=== PATIENT | male | born 1935 | race Two or more races ===

== ENCOUNTER 2020-05-26 09:17 | Inpatient (IN) | payer MEDICARE, OTHER ==
[~2020-05-26] VITALS: Ht 167.6 cm; Wt 65.8 kg
--- NOTE | 2020-05-26 09:28 | Emergency Room Report ---
History of Present Illness General Chief Complaint: Dyspnea/Respdistress Source: Patient, Medical Record, EMS Present Illness HPI Patient is an 84-year-old male diagnosed on May 20 with COVID-19 pneumonia who was brought in from his extended care facility for hypoxia. Patient is alert and oriented and has no acute complaints. Specifically he denies any fever or chills. He denies any chest pain, shortness of breath or cough. He denies any abdominal pain, nausea or vomiting. Allergies: Coded Allergies: No Known Allergies (Unverified , 05/26/20) COVID-19 Screening Contact w/high risk pt: No Experienced COVID-19 symptoms?: No COVID-19 Testing performed AREA FIELD PERSON: Yes COVID-19 Screening: Positive COVID-19 COVID-19 Testing Source: SNF Patient History Reviewed Nursing Documentation: PMH: Agreed; PSxH: Agreed Review of Systems All Other Systems: negative except mentioned in HPI Physical Exam Vital Signs Date Time Temp Pulse Resp B/P (MAP) Pulse Ox O2 Delivery O2 Flow Rate FiO2 05/26/20 09:21 98.8 95 22 99/62 (74) 96 Nasal Cannula 4.0 Sp02 EP Interpretation: reviewed, normal - normal on NC General Appearance: no apparent distress, alert Head: normocephalic, atraumatic ENT: hearing grossly normal, normal pharynx, no angioedema, normal voice Neck: full range of motion, no meningismus Respiratory: no respiratory distress, no accessory muscle use, rhonchi Cardiovascular #1: regular rate, rhythm Gastrointestinal: non tender, soft, no guarding, no rebound Rectal: deferred Neurologic: plastics plater III-XII nml as tested Psychiatric: no suicidal/homicidal ideation Skin: no rash Lymphatic: no adenopathy Medical Decision Making Diagnostic Impression: Primary Impression: COVID-19 Additional Impressions: Pneumonia UTI (urinary tract infection) Hyponatremia ER Course Patient presents for hypoxia secondary to COVID-19 pneumonia. Patient given nebulizer treatment as well as 10 mg of IV Decadron. Patient is mildly hyponatremic with sodium of 132. Patient given vancomycin as well as cefepime for his pneumonia. Patient's D-dimer is elevated and creatinine is 1.1. Patient started on heparin instead of Lovenox due to the renal insufficiency. Patient will be admitted for further treatment and evaluation. Laboratory Tests Test 05/26/20 09:00 White Blood Count 10.5 K/UL (4.8-10.8) Red Blood Count 3.58 M/UL (4.70-6.10) L Hemoglobin 12.9 G/DL (14.2-18.0) L Hematocrit 36.2 % (42.0-52.0) L Mean Corpuscular Volume 101 FL (80-99) H Mean Corpuscular Hemoglobin 35.9 PG (27.0-31.0) H Mean Corpuscular Hemoglobin Concent 35.6 G/DL (32.0-36.0) Red Cell Distribution Width 13.2 % (11.6-14.8) Platelet Count 327 K/UL (150-450) Mean Platelet Volume 5.5 FL (6.5-10.1) L Neutrophils (%) (Auto) 75.4 % (45.0-75.0) H Lymphocytes (%) (Auto) 12.9 % (20.0-45.0) L Monocytes (%) (Auto) 9.3 % (1.0-10.0) Eosinophils (%) (Auto) 1.9 % (0.0-3.0) Basophils (%) (Auto) 0.5 % (0.0-2.0) Prothrombin Time 10.8 SEC (9.30-11.50) Prothrombin Time INR 1.0 (0.9-1.1) Activated Partial Thromboplast Time 29 SEC (23-33) D-Dimer 1.86 mg/L FEU (0.00-0.49) H Urine Color Yellow Urine Appearance Clear Urine pH 6 (4.5-8.0) Urine Specific [place] 1.010 (1.005-1.035) Urine Protein 1+ (NEGATIVE) H Urine Glucose (UA) Negative (NEGATIVE) Urine Ketones Negative (NEGATIVE) Urine Blood Negative (NEGATIVE) Urine Nitrite Negative (NEGATIVE) Urine Bilirubin Negative (NEGATIVE) Urine Urobilinogen 1 MG/DL (0.0-1.0) H Urine Leukocyte Esterase 1+ (NEGATIVE) H Urine RBC 0 /HPF (0 - 0) Urine WBC 5-10 /HPF (0 - 0) H Urine Squamous Epithelial Cells Occasional /LPF Urine Bacteria Occasional /HPF (NONE) Urine Mucus Occasional /LPF Sodium Level 132 MMOL/L (136-145) L Potassium Level 4.2 MMOL/L (3.5-5.1) Chloride Level 99 MMOL/L (98-107) Carbon Dioxide Level 31 MMOL/L (21-32) Anion Gap 2 mmol/L (5-15) L Blood Urea Nitrogen 15 mg/dL (7-18) Creatinine 1.1 MG/DL (0.55-1.30) Estimated Glomerular Filtration Rate > 60 mL/min (>60) Glucose Level 147 MG/DL (74-106) H Lactic Acid Level 1.20 mmol/L (0.4-2.0) Calcium Level 8.4 MG/DL (8.5-10.1) L Magnesium Level 1.9 MG/DL (1.8-2.4) Ferritin 972 NG/ML (8-388) H Total Bilirubin 0.5 MG/DL (0.2-1.0) Aspartate Amino Transferase (AST) 49 U/L (15-37) H Alanine Aminotransferase (ALT) 81 U/L (12-78) H Alkaline Phosphatase 91 U/L (46-116) Lactate Dehydrogenase 171 U/L (81-234) Troponin I 0.044 ng/mL (0.000-0.056) C-Reactive Protein, Quantitative 5.0 mg/dL (0.00-0.90) H Pro-B-Type Natriuretic Peptide 165 pg/mL (0-125) H Total Protein 7.4 G/DL (6.4-8.2) Albumin 2.3 G/DL (3.4-5.0) L Globulin 5.1 g/dL Albumin/Globulin Ratio 0.5 (1.0-2.7) L EKG Diagnostic Results Troponin ordered: Yes When was troponin ordered?: May 26, 2020 EKG Time: 10:07 EP Interpretation: Karla More MD Rate: normal - 91 bpm Rhythm: NSR - PACs, right axis deviation ST Segments: no acute changes ASA given to the pt in ED: No Rhythm Strip Diag. Results Rhythm Strip Time: 09:45 EP Interpretation: yes - Karla More MD Rate: 95 bpm Rhythm: NSR, no PVC's, no ectopy Chest X-Ray Diagnostic Results Chest X-Ray Diagnostic Results : Chest X-Ray Ordered: Yes # of Views/Limited/Complete: 1 View Indication: Shortness of Breath EP Interpretation: Yes Interpretation: no effusion, no pneumothorax, other - Bilateral lower lobe patchy infiltrates Impression: Other - Pneumonia Electronically Signed by: Karla More MD Last Vital Signs Date Time Temp Pulse Resp B/P (MAP) Pulse Ox O2 Delivery O2 Flow Rate FiO2 05/26/20 09:21 98.8 95 22 99/62 (74) 96 Nasal Cannula 4.0 Disposition: ADMITTED INPATIENT - Telemetry Condition: Critical Physician Consult: Dr. Jenn MD at 1050am Additional Instructions: Please note that this report is being documented using Starfish 360 technology. This can lead to erroneous entry secondary to incorrect interpretation by the dictating instrument. Karla More M.D. May 26, 2020 09:28
[2020-05-26 09:30] VITALS: BP 99/62
[2020-05-26] MEDS ORDERED: TRUSOPT10 ML BOTH EYES (09:37)
[2020-05-26] MEDS ORDERED: ASPIRIN81 MG ORAL (09:37)
[2020-05-26] MEDS ORDERED: ATORVASTATIN CA10 MG ORAL (09:37)
[2020-05-26] MEDS ORDERED: LINZESS145 MCG PO (09:37)
[2020-05-26] MEDS ORDERED: ATORVASTATIN CA20 MG ORAL (09:37)
[2020-05-26] MEDS ORDERED: OMEPRAZOLE40 M1 ORAL (09:37)
[2020-05-26] MEDS ORDERED: MONTELUKAST SOD10 MG ORAL (09:37)
[2020-05-26] MEDS ORDERED: ZOLOFT100 MG ORAL (09:37)
[2020-05-26] MEDS ORDERED: RANEXA500 MG ORAL (09:37)
[2020-05-26] MEDS ORDERED: QUETIAPINE FUMA50 MG ORAL (09:37)
[2020-05-26] MEDS ORDERED: AMLODIPINE BESYL5 MG ORAL (09:37)
[2020-05-26] MEDS ORDERED: FLOMAX0.4 MG ORAL (09:37)
[2020-05-26] MEDS ORDERED: ATIVAN0.5 MG ORAL (09:37)
[2020-05-26] MEDS ORDERED: IPRATROPIU0.2 MG/1 M HHN (09:37)
[2020-05-26 10:15] LABS: APPEARANCE,URINE CLEAR; BILIRUBIN, URINE NEGATIVE (NEGATIVE); GLUCOSE, URINE (UA) NEGATIVE (NEGATIVE); KETONES,URINE NEGATIVE (NEGATIVE); LEUKOCYTE ESTERASE ,URINE 1+ (NEGATIVE); NITRITE,URINE NEGATIVE (NEGATIVE); PH,URINE 6 (4.5-8.0); PROTEIN,URINE 1+ (NEGATIVE); UROBILINOGEN,URINE 1 MG/DL (0.0-1.0)
--- NOTE | 2020-05-26 10:15 | Diagnostic Imaging Report ---
EXAM: XR Chest, 1 View CLINICAL HISTORY: SOB TECHNIQUE: Frontal view of the chest. COMPARISON: No relevant prior studies available. FINDINGS: Lungs: There are patchy bilateral diffuse peripheral ground glass alveolar infiltrates consistent with pneumonia. The infiltrates are typical of Covid 19. Pleural space: Unremarkable. No pneumothorax. Heart: Unremarkable. No cardiomegaly. Mediastinum: Unremarkable. Bones/joints: Unremarkable. IMPRESSION: There are patchy bilateral diffuse peripheral ground glass alveolar infiltrates consistent with pneumonia. The infiltrates are typical of Covid 19.
[2020-05-26 10:16] LABS: COLOR,URINE YELLOW
[2020-05-26 10:22] LABS: BASOPHILS % (AUTO) 0.5 % (0.0-2.0); EOSINOPHILS % (AUTO) 1.9 % (0.0-3.0); HEMATOCRIT 36.2 % (42.0-52.0); HEMOGLOBIN 12.9 G/DL (14.2-18.0); LYMPHOCYTES % (AUTO) 12.9 % (20.0-45.0); MEAN CORPUSCULAR VOLUME 101 FL (80-99); MONOCYTES % (AUTO) 9.3 % (1.0-10.0); NEUTROPHILS % (AUTO) 75.4 % (45.0-75.0); PLATELET COUNT 327 K/UL (150-450); RED BLOOD COUNT 3.58 M/UL (4.70-6.10); RED CELL DISTRIBUTION WIDTH 13.2 % (11.6-14.8); WHITE BLOOD COUNT 10.5 K/UL (4.8-10.8)
[2020-05-26 10:25] LABS: ANION GAP 2 mmol/L (5-15); BLOOD UREA NITROGEN 15 mg/dL (7-18); CALCIUM 8.4 MG/DL (8.5-10.1); CARBON DIOXIDE 31 MMOL/L (21-32); CHLORIDE 99 MMOL/L (98-107); CREATININE 1.1 MG/DL (0.55-1.30); POTASSIUM 4.2 MMOL/L (3.5-5.1); SODIUM 132 MMOL/L (136-145)
[2020-05-26 10:36] LABS: ALANINE AMINOTRANSFERASE 81 U/L (12-78); ALBUMIN 2.3 G/DL (3.4-5.0); ALBUMIN/GLOBULIN RATIO 0.5 (1.0-2.7); ALKALINE PHOSPHATASE 91 U/L (46-116); ASPARTATE AMINO TRANSFERASE 49 U/L (15-37); BILIRUBIN,TOTAL 0.5 MG/DL (0.2-1.0); FERRITIN 972 NG/ML (8-388); LACTATE DEHYDROGENASE 171 U/L (81-234)
[2020-05-26] MEDS ORDERED: dexAMETHasone 10mg/ml Inj IV ONE (11:00)
[2020-05-26] MEDS ORDERED: Heparin 25,000u/D5W 500ml 500 ML IV SCH (11:00)
[2020-05-26] MEDS ORDERED: Albuterol/Ipratropium 3ml neb HHN ONE (11:00)
[2020-05-26] MEDS ORDERED: Heparin 5000 units/ml inj IV ONE (11:00)
[2020-05-26] MEDS ORDERED: Cefepime HCl 2 GM in D5W 55 ML IVPB ONE (11:00)
[2020-05-26] MEDS ORDERED: Vancomycin 1 GM in NS 275 ML IVPB ONE (11:00)
[2020-05-26 13:04] VITALS: BP 116/76
[2020-05-26] MEDS ORDERED: Albuterol/Ipratropium 3ml neb ONE (15:13)
[2020-05-26] MEDS ORDERED: Miralax 17gm pkt ORAL PRN (16:00)
[2020-05-26] MEDS ORDERED: Albuterol/Ipratropium 3ml neb HHN PRN (16:00)
[2020-05-26 16:14] VITALS: BP 116/90
[2020-05-26] MEDS: Azithromycin 250 MG in D5W 275 ML IV SCH (17:50)
[2020-05-26 18:04] VITALS: BP 130/72
[2020-05-26 19:30] VITALS: BP 119/79
[2020-05-26] MEDS: cefTRIAXone 1 GM in D5W 55 ML IVPB SCH (21:00)
[2020-05-26] MEDS: Heparin 5000 units/ml inj SUBQ SCH (21:01)
--- NOTE | 2020-05-26 21:20 | History & Physical ---
History and Physical History & Physicial job #[id number] Josiah Rosales MD May 26, 2020 21:20
--- NOTE | 2020-05-26 21:22 | General Progress Note ---
Advance Care Planning Advance Care Planning Advance Care Planning Internal Medicine Hospitalist Advanced Care Planning Note Date of Discussion: A [id number] discussion with the Patient regarding the patient's advanced care planning took place during this hospitalization on the above date. The discussion included the explanation and discussion of advance directives and associated forms/documents, as well as the patient's current code status. We also discussed at length the patient's medical conditions (both acute and chronic), general prognosis, treatment options, and goals of care. The following summarizes the discussion: Advance Care Planning/Goals of Care: - Will attempt to fill out an AD and/or POLST with the patient prior to discharge, if not already completed - Continue current evaluation and management of any acute and chronic medical issues - Will continue to support the patient/family - Will continue to discuss both short- and long-term goals of care DPOA-HC/Surrogate Decision Maker: None currently appointed Code Status: Full Code Advanced Care Planning Forms/Documents Completed: Deferred until later encounter A total of less than 30 minutes was spent on this discussion, including counseling, answering questions, and completing, if any, pertinent advanced care planning forms/documents. Time of note may not reflect time of encounter. Josiah Rosales MD May 26, 2020 21:21
[2020-05-26 23:00] VITALS: BP 128/73
--- NOTE | 2020-05-26 23:14 | History and Physical Report ---
DATE OF ADMISSION: 05/26/2020 CHIEF COMPLAINT: Shortness of breath. HISTORY OF PRESENT ILLNESS: This is an 84-year-old [place] gentleman with past medical history significant for depression, BPH, coronary artery disease, history of open heart surgery, dyslipidemia who presented to the hospital from nursing facility after was noted to have recent COVID-19 pneumonia on 05/20/2020. Patient was brought in from the [facility] after was complaining about worsening shortness of breath. He denies any fever, chills. Denies any chest pain or loss of consciousness. Denies any abdominal pain, nausea, vomiting, or diarrhea. Shortly after initial evaluation in the emergency department, patient was admitted to the hospital with COVID-19 pneumonia with acute hypoxemic respiratory failure. PAST MEDICAL HISTORY/PAST SURGICAL HISTORY: As above. History of recent COVID-19 positive on 05/20/2020, open heart surgery, history of coronary artery disease, dyslipidemia, depression, and BPH. MEDICATIONS AT HOME: Please refer to medication reconciliation. ALLERGIES: No known drug allergies. SOCIAL HISTORY: No smoking, alcohol, or drugs at this time. FAMILY HISTORY: Noncontributory. REVIEW OF SYSTEMS: Mostly as above. Denies any dysuria, frequency, hematuria, or hematochezia. Denies any bright red blood per rectum. Denies any loss of consciousness. Complained about shortness of breath. Denies any fever, chills, fall, or head trauma. PHYSICAL EXAMINATION: VITAL SIGNS: On admission, temperature 98.8, pulse of 95, respiratory rate 22, blood pressure 99/62. GENERAL: Patient awake, responsive, in no acute distress. HEAD AND NECK: Pupils are equal and reactive to light. Extraocular movements are intact. Neck was supple. No JVD. LUNGS: Good air entry. Positive wheezes. No rales. Decreased air in bases. HEART: S1, S2. Distant heart sounds. No murmur or gallops. ABDOMEN: Soft, nondistended, nontender. Positive bowel sounds. EXTREMITIES: No cyanosis, clubbing, or edema. NEUROLOGIC: Cranial nerves II through XII grossly intact. Patient moving all the extremities spontaneously. RECTAL: Refused and deferred. GENITOURINARY: Refused and deferred. PSYCHIATRIC: Mood and affect is intact. LABORATORY DATA: On admission WBC of 10.5, hemoglobin 12, hematocrit 36, platelets 227. ABG, pH 7.37, pCO2 of 52, pO2 of 103, saturating 97%. Sodium is 132, potassium 4.2, chloride 99, bicarb 31, BUN 15, creatinine 1.1, glucose is 147. Lactic acid is 1.2, calcium is 8.4, magnesium is 1.9. Ferritin 972. Total bilirubin of 0.5, AST of 49, ALT of 81, alkaline phosphatase 91. Lactate dehydrogenase is 171. First troponin 0.044. CRP is 5.0. ProBNP of 165. Albumin is 2.3. PT of 10, INR 1.0, PTT of 29. D-dimer is 1.86. Urinalysis, +1 protein, +1 leukocytes. Influenza A and B is negative. Chest x-ray, patchy bilateral diffuse pulmonary ground glass alveolar infiltrate consistent with pneumonia. ASSESSMENT: 1. COVID-19 pneumonia. 2. Acute hypoxemic respiratory failure. 3. Hyponatremia. 4. Coronary artery disease. 5. Dyslipidemia. 6. Depression. 7. BPH. PLAN: Admit the patient to monitored unit. We will follow up laboratory. Start patient on Decadron and consider starting patient on remdesivir if the patient's status is not improving. Monitor laboratory, cultures. Duplex of lower extremity. Code status is Full Code. We will resume snf medication. Discussed case with Dr. Yeung, Pulmonary Critical Care and Dr. Garcia from Infectious Disease. Josiah Rosales M.D. DR: ZAYRA JOB#: [id number] CC:
[2020-05-27] VITALS (8 sets, daily range): BP systolic 114–156; BP diastolic 62–81
--- NOTE | 2020-05-27 01:02 | Diagnostic Imaging Report ---
EXAM: US Duplex Bilateral Upper Extremities Veins CLINICAL HISTORY: COUGH TECHNIQUE: Real-time duplex ultrasound scan of the bilateral upper extremity veins integrating B-mode two-dimensional vascular structure, Doppler spectral analysis, color flow Doppler imaging and compression. COMPARISON: No previous studies for FINDINGS: Right deep veins: Otherwise, no deep venous thrombosis bilaterally in the upper extremities including the internal jugular veins, subclavian veins, and axillary veins, the brachial veins. Right superficial veins: No thrombosis within the basilic veins bilaterally and the right cephalic vein. Left deep veins: See above. Left superficial veins: The left cephalic vein is not visualized. No thrombus in the visualized left basilic and cephalic veins. Soft tissues: No acute findings. IMPRESSION: 1. No deep venous thrombosis bilaterally upper extremities. 2. Nonvisualization of the left cephalic vein.
[2020-05-27 04:37] LABS: HEMATOCRIT 35.3 % (42.0-52.0); HEMOGLOBIN 12.7 G/DL (14.2-18.0); MEAN CORPUSCULAR VOLUME 101 FL (80-99); PLATELET COUNT 311 K/UL (150-450); RED BLOOD COUNT 3.51 M/UL (4.70-6.10); RED CELL DISTRIBUTION WIDTH 13.1 % (11.6-14.8); WHITE BLOOD COUNT 16.6 K/UL (4.8-10.8)
[2020-05-27 04:58] LABS: ALANINE AMINOTRANSFERASE 84 U/L (12-78); ALBUMIN 2.3 G/DL (3.4-5.0); ALBUMIN/GLOBULIN RATIO 0.5 (1.0-2.7); ALKALINE PHOSPHATASE 87 U/L (46-116); ANION GAP 4 mmol/L (5-15); ASPARTATE AMINO TRANSFERASE 46 U/L (15-37); BILIRUBIN,TOTAL 0.4 MG/DL (0.2-1.0); BLOOD UREA NITROGEN 14 mg/dL (7-18); CALCIUM 8.5 MG/DL (8.5-10.1); CARBON DIOXIDE 30 MMOL/L (21-32); CHLORIDE 100 MMOL/L (98-107); CREATININE 0.9 MG/DL (0.55-1.30); PHOSPHORUS 2.9 MG/DL (2.5-4.9); POTASSIUM 4.4 MMOL/L (3.5-5.1); SODIUM 134 MMOL/L (136-145)
[2020-05-27] MEDS: Tamsulosin 0.4mg cap ORAL SCH (09:01)
[2020-05-27] MEDS: Aspirin Baby 81mg ORAL SCH (09:01)
[2020-05-27] MEDS: Sertraline 50mg tab ORAL SCH (09:01)
[2020-05-27] MEDS: Heparin 5000 units/ml inj SUBQ SCH ×2 (09:03→21:19)
--- NOTE | 2020-05-27 15:08 | Internal Med Progress Note ---
Subjective Physician Name Josiah Rosales Attending Physician Current Medications Medications (Trade) Dose Ordered Sig/Lewis Route PRN Reason Start Time Stop Time Status Last Admin Dose Admin Acetaminophen (Tylenol) 650 mg Q4H PRN ORAL FEVER 05/26/20 15:53 06/25/20 15:52 Albuterol/ Ipratropium (Combivent Respimat) 1 puff Q4H PRN INH Shortness of Breath 05/26/20 16:00 06/25/20 15:59 UNV Amlodipine Besylate (Norvasc) 5 mg DAILY ORAL 05/27/20 09:00 06/26/20 08:59 05/27/20 09:01 Aspirin (ASA) 81 mg DAILY ORAL 05/27/20 09:00 07/11/20 08:59 05/27/20 09:01 Azithromycin 250 mg/Dextrose 275 ml @ 275 mls/hr Q24HRS IV 05/26/20 18:00 05/31/20 17:59 05/26/20 17:50 Ceftriaxone Sodium 1 gm/ Dextrose 55 ml @ 110 mls/hr Q24H IVPB 05/26/20 21:00 06/02/20 20:59 05/26/20 21:00 Dexamethasone (Decadron) 6 mg DAILY ORAL 05/27/20 09:00 06/26/20 08:59 05/27/20 09:01 Dextrose (Dextrose 50%) 25 ml Q30M PRN IV Hypoglycemia 05/26/20 15:52 08/24/20 15:51 Dextrose (Dextrose 50%) 50 ml Q30M PRN IV Hypoglycemia 05/26/20 15:52 08/24/20 15:51 Heparin Sodium (Porcine) (Heparin 5000 units/ml) 5,000 units EVERY 12 HOURS SUBQ 05/26/20 21:00 07/10/20 20:59 05/27/20 09:03 Ondansetron HCl (Zofran) 4 mg Q6H PRN IVP Nausea & Vomiting 05/26/20 15:52 06/25/20 15:51 Polyethylene Glycol (Miralax) 17 gm DAILY PRN ORAL CONSTIPATION 05/26/20 16:00 06/25/20 15:59 Promethazine HCl/ Codeine (Phenergan with Codeine) 5 ml Q6H PRN ORAL cough 05/26/20 15:53 06/25/20 15:52 Quetiapine Fumarate (SEROqueL) 150 mg BEDTIME ORAL 05/26/20 21:00 07/10/20 20:59 05/26/20 21:00 Sertraline HCl (Zoloft) 150 mg DAILY ORAL 05/27/20 09:00 06/26/20 08:59 05/27/20 09:01 Tamsulosin HCl (Flomax) 0.4 mg DAILY ORAL 05/27/20 09:00 06/26/20 08:59 05/27/20 09:01 Allergies: Coded Allergies: No Known Allergies (Unverified , 05/26/20) Subjective Awake, alert, responsive, denies any chest pain, decreased shortness of breath, troponin 0.042 Objective Last Vital Signs Date Time Temp Pulse Resp B/P (MAP) Pulse Ox O2 Delivery O2 Flow Rate FiO2 05/27/20 10:20 98.7 80 14 125/70 100 Nasal Cannula 2.0 05/27/20 02:00 36 Laboratory Tests Test 05/27/20 04:15 White Blood Count 16.6 K/UL (4.8-10.8) #H Red Blood Count 3.51 M/UL (4.70-6.10) L Hemoglobin 12.7 G/DL (14.2-18.0) L Hematocrit 35.3 % (42.0-52.0) L Mean Corpuscular Volume 101 FL (80-99) H Mean Corpuscular Hemoglobin 36.1 PG (27.0-31.0) H Mean Corpuscular Hemoglobin Concent 35.9 G/DL (32.0-36.0) Red Cell Distribution Width 13.1 % (11.6-14.8) Platelet Count 311 K/UL (150-450) Mean Platelet Volume 5.3 FL (6.5-10.1) L Neutrophils (%) (Auto) % (45.0-75.0) Lymphocytes (%) (Auto) % (20.0-45.0) Monocytes (%) (Auto) % (1.0-10.0) Eosinophils (%) (Auto) % (0.0-3.0) Basophils (%) (Auto) % (0.0-2.0) Differential Total Cells Counted 100 Neutrophils % (Manual) 89 % (45-75) H Lymphocytes % (Manual) 6 % (20-45) L Monocytes % (Manual) 5 % (1-10) Eosinophils % (Manual) 0 % (0-3) Basophils % (Manual) 0 % (0-2) Band Neutrophils 0 % (0-8) Platelet Estimate Adequate Platelet Morphology Normal Macrocytosis 1+ Sodium Level 134 MMOL/L (136-145) L Potassium Level 4.4 MMOL/L (3.5-5.1) Chloride Level 100 MMOL/L (98-107) Carbon Dioxide Level 30 MMOL/L (21-32) Anion Gap 4 mmol/L (5-15) L Blood Urea Nitrogen 14 mg/dL (7-18) Creatinine 0.9 MG/DL (0.55-1.30) Estimat Glomerular Filtration Rate > 60 mL/min (>60) Glucose Level 105 MG/DL (74-106) Calcium Level 8.5 MG/DL (8.5-10.1) Phosphorus Level 2.9 MG/DL (2.5-4.9) Magnesium Level 2.8 MG/DL (1.8-2.4) H Total Bilirubin 0.4 MG/DL (0.2-1.0) Aspartate Amino Transf (AST/SGOT) 46 U/L (15-37) H Alanine Aminotransferase (ALT/SGPT) 84 U/L (12-78) H Alkaline Phosphatase 87 U/L (46-116) Troponin I 0.042 ng/mL (0.000-0.056) Total Protein 7.3 G/DL (6.4-8.2) Albumin 2.3 G/DL (3.4-5.0) L Globulin 5.0 g/dL Albumin/Globulin Ratio 0.5 (1.0-2.7) L Microbiology Date/Time Source Procedure Growth Status 05/26/20 10:00 Rectum Received 05/26/20 10:00 Nasal Nares - Final Complete 05/26/20 10:00 Nasal Nares - Final Complete Intake and Output 05/26/20 05/27/20 19:00 07:00 Intake Total 330 ml Balance 330 ml Intake IV Total 330 ml Objective GENERAL: Patient awake, responsive, in no acute distress. HEAD AND NECK: Pupils are equal and reactive to light. Extraocular movements are intact. Neck was supple. No JVD. LUNGS: Good air entry. Positive wheezes. No rales. Decreased air in bases. HEART: S1, S2. Distant heart sounds. No murmur or gallops. ABDOMEN: Soft, nondistended, nontender. Positive bowel sounds. EXTREMITIES: No cyanosis, clubbing, or edema. NEUROLOGIC: Cranial nerves II through XII grossly intact. Patient moving all the extremities spontaneously. RECTAL: Refused and deferred. GENITOURINARY: Refused and deferred. PSYCHIATRIC: Mood and affect is intact. Assessment/Plan Assessment/Plan ASSESSMENT: 1. COVID-19 pneumonia. 2. Acute hypoxemic respiratory failure. 3. Hyponatremia. 4. 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 5. Dyslipidemia. 6. Depression. 7. BPH. PLAN: In monitored unit. Monitor laboratory and cultures. on Decadron Consider Remdesivir if the patient's status is not improving. Duplex of lower extremity negative for acute DVT. Code status is Full Code. DVT prophylaxis: Heparin subcu. Dr. Yeung, Pulmonary Critical Care and Dr. Garcia from Infectious Disease. Josiah Rosales MD May 27, 2020 15:07
[2020-05-27] MEDS: Azithromycin 250 MG in D5W 275 ML IV SCH (18:04)
[2020-05-27] MEDS: cefTRIAXone 1 GM in D5W 55 ML IVPB SCH (21:18)
[2020-05-27] MEDS ORDERED: QUEtiapine 200mg tab ORAL SCH (21:30)
[2020-05-28] VITALS: BP 125/72
[2020-05-28 04:00] VITALS: BP 133/78
[2020-05-28 07:48] LABS: BASOPHILS % (AUTO) 0.5 % (0.0-2.0); EOSINOPHILS % (AUTO) 0.8 % (0.0-3.0); HEMOGLOBIN 12.1 G/DL (14.2-18.0); LYMPHOCYTES % (AUTO) 10.4 % (20.0-45.0); MEAN CORPUSCULAR VOLUME 104 FL (80-99); MONOCYTES % (AUTO) 6.1 % (1.0-10.0); NEUTROPHILS % (AUTO) 82.2 % (45.0-75.0); PLATELET COUNT 301 K/UL (150-450); RED BLOOD COUNT 3.28 M/UL (4.70-6.10); RED CELL DISTRIBUTION WIDTH 12.2 % (11.6-14.8); WHITE BLOOD COUNT 14.5 K/UL (4.8-10.8)
[2020-05-28 08:00] VITALS: BP 138/73
[2020-05-28 08:01] LABS: ALANINE AMINOTRANSFERASE 113 U/L (12-78); ALBUMIN 2.3 G/DL (3.4-5.0); ALBUMIN/GLOBULIN RATIO 0.5 (1.0-2.7); ALKALINE PHOSPHATASE 89 U/L (46-116); AMYLASE 149 U/L (25-115); ANION GAP 3 mmol/L (5-15); ASPARTATE AMINO TRANSFERASE 69 U/L (15-37); BILIRUBIN,TOTAL 0.3 MG/DL (0.2-1.0); BLOOD UREA NITROGEN 18 mg/dL (7-18); CALCIUM 8.7 MG/DL (8.5-10.1); CARBON DIOXIDE 31 MMOL/L (21-32); CHLORIDE 99 MMOL/L (98-107); CREATININE 0.9 MG/DL (0.55-1.30); POTASSIUM 4.2 MMOL/L (3.5-5.1); SODIUM 133 MMOL/L (136-145)
[2020-05-28] MEDS: Sertraline 50mg tab ORAL SCH (09:13)
[2020-05-28] MEDS: Tamsulosin 0.4mg cap ORAL SCH (09:13)
[2020-05-28] MEDS: Aspirin Baby 81mg ORAL SCH (09:13)
[2020-05-28] MEDS: Heparin 5000 units/ml inj SUBQ SCH ×2 (09:14→20:15)
--- NOTE | 2020-05-28 11:44 | Consultation ---
History of Present Illness General Date patient seen: May 27, 2020 Chief Complaint: Dyspnea/Respdistress Present Illness HPI 84-year-old male with hx of HTN, BPH, COPD, [facility] resident diagnosed on May 20 with COVID-19 pneumonia who was brought for hypoxia. Patient is julian rt and oriented and has no acute complaints. Specifically he denies any fever or chills. He denies any chest pain, shortness of breath or cough. He denies any abdominal pain, nausea or vomiting. Allergies: Coded Allergies: No Known Allergies (Unverified , 05/26/20) Medication History Scheduled Amlodipine Besylate* (Amlodipine Besylate*), 5 MG ORAL DAILY, (Reported) Aspirin* (Aspirin*), 81 MG ORAL DAILY, (Reported) Atorvastatin Calcium* (Atorvastatin Calcium*), 20 MG ORAL BEDTIME, (Reported) Atorvastatin Calcium* (Lipitor*), 10 MG ORAL BEDTIME, (Reported) Atorvastatin Calcium* (Lipitor*), 10 MG ORAL BEDTIME, (Reported) Dorzolamide Hcl* (Trusopt*), 1 DROP BOTH EYES TID, (Reported) Lorazepam* (Ativan*), 0.5 MG ORAL THREE TIMES A DAY, (Reported) Montelukast Sodium* (Montelukast Sodium*), 10 MG ORAL DAILY, (Reported) Omeprazole (Omeprazole), 40 MG ORAL DAILY, (Reported) Quetiapine Fumarate* (Quetiapine Fumarate*), 150 MG ORAL BEDTIME, (Reported) Ranolazine* (Ranexa*), 500 MG ORAL EVERY 12 HOURS, (Reported) Sertraline Hcl* (Zoloft*), 150 MG ORAL DAILY, (Reported) Tamsulosin HCl (Flomax), 0.4 MG ORAL DAILY, (Reported) Scheduled PRN Ipratropium Zachary 0.5MG/2.5ML (Ipratropium Zachary 0.5MG/2.5ML), 0.5 MG HHN Q6H PRN for Shortness of Breath, (Reported) Miscellaneous Medications Linaclotide (Linzess), 145 MCG PO, (Reported) Patient History Healthcare decision maker Resuscitation status Advanced Directive on File Past Medical/Surgical History Past Medical/Surgical History: (1) CAD (coronary artery disease) (2) HTN (hypertension) (3) COPD (chronic obstructive pulmonary disease) (4) BPH (benign prostatic hyperplasia) Review of Systems All Other Systems: negative except mentioned in HPI Physical Exam General Appearance: WD/WN Lines, tubes and drains: peripheral HEENT: normocephalic, atraumatic Neck: non-tender, normal alignment Respiratory/Chest: chest wall non-tender, lungs clear Cardiovascular/Chest: normal peripheral pulses, normal rate Abdomen: normal bowel sounds, non tender Genitourinary/Rectal: normal genital exam Skin Exam: normal pigmentation Neurologic: [place] II-XII grossly normal Last 24 Hour Vital Signs Date Time Temp Pulse Resp B/P (MAP) Pulse Ox O2 Delivery O2 Flow Rate FiO2 05/28/20 09:13 95 138/73 05/28/20 09:00 Nasal Cannula 2.0 05/28/20 08:00 97.5 85 20 138/73 (94) 96 05/28/20 04:00 97.7 79 17 133/78 (96) 99 05/28/20 00:00 97.7 91 18 125/72 (89) 98 05/27/20 21:00 Nasal Cannula 2.0 05/27/20 20:00 98.1 86 16 128/81 (97) 98 05/27/20 17:08 Nasal Cannula 2.0 05/27/20 16:38 97.3 77 18 156/77 (103) 96 05/27/20 16:03 98.7 89 17 132/79 100 Nasal Cannula 2.0 36 05/27/20 13:05 98.7 77 16 131/74 98 Nasal Cannula 2.0 36 Intake and Output 05/27/20 05/28/20 19:00 07:00 Intake Total 310 ml Balance 310 ml Intake Oral 200 ml IV Total 110 ml # Voids 2 Laboratory Tests Test 05/28/20 05:40 White Blood Count 14.5 K/UL (4.8-10.8) H Red Blood Count 3.28 M/UL (4.70-6.10) L Hemoglobin 12.1 G/DL (14.2-18.0) L Hematocrit 34.0 % (42.0-52.0) L Mean Corpuscular Volume 104 FL (80-99) H Mean Corpuscular Hemoglobin 36.8 PG (27.0-31.0) H Mean Corpuscular Hemoglobin Concent 35.4 G/DL (32.0-36.0) Red Cell Distribution Width 12.2 % (11.6-14.8) Platelet Count 301 K/UL (150-450) Mean Platelet Volume 4.7 FL (6.5-10.1) L Neutrophils (%) (Auto) 82.2 % (45.0-75.0) H Lymphocytes (%) (Auto) 10.4 % (20.0-45.0) L Monocytes (%) (Auto) 6.1 % (1.0-10.0) Eosinophils (%) (Auto) 0.8 % (0.0-3.0) Basophils (%) (Auto) 0.5 % (0.0-2.0) Erythrocyte Sedimentation Rate 95 MM/HR (0-20) H Sodium Level 133 MMOL/L (136-145) L Potassium Level 4.2 MMOL/L (3.5-5.1) Chloride Level 99 MMOL/L (98-107) Carbon Dioxide Level 31 MMOL/L (21-32) Anion Gap 3 mmol/L (5-15) L Blood Urea Nitrogen 18 mg/dL (7-18) Creatinine 0.9 MG/DL (0.55-1.30) Estimat Glomerular Filtration Rate > 60 mL/min (>60) Glucose Level 87 MG/DL (74-106) Lactic Acid Level 1.00 mmol/L (0.4-2.0) Calcium Level 8.7 MG/DL (8.5-10.1) Total Bilirubin 0.3 MG/DL (0.2-1.0) Aspartate Amino Transf (AST/SGOT) 69 U/L (15-37) H Alanine Aminotransferase (ALT/SGPT) 113 U/L (12-78) H Alkaline Phosphatase 89 U/L (46-116) C-Reactive Protein, Quantitative 2.5 mg/dL (0.00-0.90) H Total Protein 7.1 G/DL (6.4-8.2) Albumin 2.3 G/DL (3.4-5.0) L Globulin 4.8 g/dL Albumin/Globulin Ratio 0.5 (1.0-2.7) L Amylase Level 149 U/L (25-115) H Lipase 349 U/L (73-393) Height (Feet): 5 Height (Inches): 6.00 Weight (Pounds): 145 Medications Current Medications Medications (Trade) Dose Ordered Sig/Lewis Route PRN Reason Start Time Stop Time Status Last Admin Dose Admin Acetaminophen (Tylenol) 650 mg Q4H PRN ORAL FEVER 05/26/20 15:53 06/25/20 15:52 Albuterol/ Ipratropium (Combivent Respimat) 1 puff Q4H PRN INH Shortness of Breath 05/27/20 21:30 06/26/20 21:29 05/27/20 21:18 Amlodipine Besylate (Norvasc) 5 mg DAILY ORAL 05/27/20 09:00 06/26/20 08:59 05/28/20 09:13 Aspirin (ASA) 81 mg DAILY ORAL 05/27/20 09:00 07/11/20 08:59 05/28/20 09:13 Azithromycin 250 mg/Dextrose 275 ml @ 275 mls/hr Q24HRS IV 05/26/20 18:00 05/31/20 17:59 05/27/20 18:04 Ceftriaxone Sodium 1 gm/ Dextrose 55 ml @ 110 mls/hr Q24H IVPB 05/26/20 21:00 06/02/20 20:59 05/27/20 21:18 Dexamethasone (Decadron) 6 mg DAILY ORAL 05/27/20 09:00 06/26/20 08:59 05/28/20 10:25 Dextrose (Dextrose 50%) 25 ml Q30M PRN IV Hypoglycemia 05/26/20 15:52 08/24/20 15:51 Dextrose (Dextrose 50%) 50 ml Q30M PRN IV Hypoglycemia 05/26/20 15:52 08/24/20 15:51 Heparin Sodium (Porcine) (Heparin 5000 units/ml) 5,000 units EVERY 12 HOURS SUBQ 05/26/20 21:00 07/10/20 20:59 05/28/20 09:14 Ondansetron HCl (Zofran) 4 mg Q6H PRN IVP Nausea & Vomiting 05/26/20 15:52 06/25/20 15:51 Polyethylene Glycol (Miralax) 17 gm DAILY PRN ORAL CONSTIPATION 05/26/20 16:00 06/25/20 15:59 Promethazine HCl/ Codeine (Phenergan with Codeine) 5 ml Q6H PRN ORAL cough 05/26/20 15:53 06/25/20 15:52 Quetiapine Fumarate (SEROqueL) 150 mg BEDTIME ORAL 05/28/20 21:00 07/11/20 21:29 Sertraline HCl (Zoloft) 150 mg DAILY ORAL 05/27/20 09:00 06/26/20 08:59 05/28/20 09:13 Tamsulosin HCl (Flomax) 0.4 mg DAILY ORAL 05/27/20 09:00 06/26/20 08:59 05/28/20 09:13 Temazepam (Restoril) 15 mg HSPRN PRN ORAL Insomnia 05/28/20 01:00 06/04/20 00:59 05/28/20 01:05 Assessment/Plan Problem List: (1) COVID-19 ICD Codes: U07.1 - COVID-19 SNOMED: 290641451 (2) COPD (chronic obstructive pulmonary disease) ICD Codes: J44.9 - Chronic obstructive pulmonary disease, unspecified SNOMED: 69126719 (3) CAD (coronary artery disease) ICD Codes: I25.10 - Atherosclerotic heart disease of [place] coronary artery without angina pectoris SNOMED: 83465079 (4) HTN (hypertension) ICD Codes: I10 - Essential (primary) hypertension SNOMED: 87308916 (5) BPH (benign prostatic hyperplasia) ICD Codes: N40.0 - Benign prostatic hyperplasia without lower urinary tract symptoms SNOMED: 902400657 Assessment/Plan: Respiratory Isolation titrate fio2 to sat of 92% ABx and antiviral as per ID monitor BP resume [facility] meds symptomatic treatment antitussives dvt prophylaxis Maria Eugenia Yeung MD May 28, 2020 11:44
--- NOTE | 2020-05-28 11:46 | Pulmonology Progress Note ---
Subjective ROS Limited/Unobtainable: Yes Allergies: Coded Allergies: No Known Allergies (Unverified , 05/26/20) Objective Last 24 Hour Vital Signs Date Time Temp Pulse Resp B/P (MAP) Pulse Ox O2 Delivery O2 Flow Rate FiO2 05/28/20 09:13 95 138/73 05/28/20 09:00 Nasal Cannula 2.0 05/28/20 08:00 97.5 85 20 138/73 (94) 96 05/28/20 04:00 97.7 79 17 133/78 (96) 99 05/28/20 00:00 97.7 91 18 125/72 (89) 98 05/27/20 21:00 Nasal Cannula 2.0 05/27/20 20:00 98.1 86 16 128/81 (97) 98 05/27/20 17:08 Nasal Cannula 2.0 05/27/20 16:38 97.3 77 18 156/77 (103) 96 05/27/20 16:03 98.7 89 17 132/79 100 Nasal Cannula 2.0 36 05/27/20 13:05 98.7 77 16 131/74 98 Nasal Cannula 2.0 36 Intake and Output 05/27/20 05/28/20 19:00 07:00 Intake Total 310 ml Balance 310 ml Intake Oral 200 ml IV Total 110 ml # Voids 2 General Appearance: WD/WN HEENT: normocephalic, atraumatic Respiratory: chest wall non-tender, lungs clear Cardiovascular: normal peripheral pulses, regular rhythm Abdomen: normal bowel sounds, soft, non tender Genitourinary: normal external genitalia Extremities: no clubbing Skin: no rash Neurologic: sole rounder II-XII grossly normal Microbiology Date/Time Source Procedure Growth Status 05/26/20 10:00 Rectum VRE Culture - Final Enterococcus Faecium - Vre Complete 05/26/20 10:00 Nasal Nares - Final Complete 05/26/20 10:00 Nasal Nares - Final Complete Laboratory Tests 05/28/20 05:40: White Blood Count 14.5H, Red Blood Count 3.28L, Hemoglobin 12.1L, Hematocrit 34.0L, Mean Corpuscular Volume 104H, Mean Corpuscular Hemoglobin 36.8H, Mean Corpuscular Hemoglobin Concent 35.4, Red Cell Distribution Width 12.2, Platelet Count 301, Mean Platelet Volume 4.7L, Neutrophils (%) (Auto) 82.2H, Lymphocytes (%) (Auto) 10.4L, Monocytes (%) (Auto) 6.1, Eosinophils (%) (Auto) 0.8, Basophils (%) (Auto) 0.5, Erythrocyte Sedimentation Rate 95H, Sodium Level 133L, Potassium Level 4.2, Chloride Level 99, Carbon Dioxide Level 31, Anion Gap 3L, Blood Urea Nitrogen 18, Creatinine 0.9, Estimat Glomerular Filtration Rate > 60, Glucose Level 87, Lactic Acid Level 1.00, Calcium Level 8.7, Total Bilirubin 0.3, Aspartate Amino Transf (AST/SGOT) 69H, Alanine Aminotransferase (ALT/SGPT) 113H, Alkaline Phosphatase 89, C-Reactive Protein, Quantitative 2.5H, Total Protein 7.1, Albumin 2.3L, Globulin 4.8, Albumin/Globulin Ratio 0.5L, Amylase Level 149H, Lipase 349 Current Medications Medications (Trade) Dose Ordered Sig/Lewis Route PRN Reason Start Time Stop Time Status Last Admin Dose Admin Acetaminophen (Tylenol) 650 mg Q4H PRN ORAL FEVER 05/26/20 15:53 06/25/20 15:52 Albuterol/ Ipratropium (Combivent Respimat) 1 puff Q4H PRN INH Shortness of Breath 05/27/20 21:30 06/26/20 21:29 05/27/20 21:18 Amlodipine Besylate (Norvasc) 5 mg DAILY ORAL 05/27/20 09:00 06/26/20 08:59 05/28/20 09:13 Aspirin (ASA) 81 mg DAILY ORAL 05/27/20 09:00 07/11/20 08:59 05/28/20 09:13 Azithromycin 250 mg/Dextrose 275 ml @ 275 mls/hr Q24HRS IV 05/26/20 18:00 05/31/20 17:59 05/27/20 18:04 Ceftriaxone Sodium 1 gm/ Dextrose 55 ml @ 110 mls/hr Q24H IVPB 05/26/20 21:00 06/02/20 20:59 05/27/20 21:18 Dexamethasone (Decadron) 6 mg DAILY ORAL 05/27/20 09:00 06/26/20 08:59 05/28/20 10:25 Dextrose (Dextrose 50%) 25 ml Q30M PRN IV Hypoglycemia 05/26/20 15:52 08/24/20 15:51 Dextrose (Dextrose 50%) 50 ml Q30M PRN IV Hypoglycemia 05/26/20 15:52 08/24/20 15:51 Heparin Sodium (Porcine) (Heparin 5000 units/ml) 5,000 units EVERY 12 HOURS SUBQ 05/26/20 21:00 07/10/20 20:59 05/28/20 09:14 Ondansetron HCl (Zofran) 4 mg Q6H PRN IVP Nausea & Vomiting 05/26/20 15:52 06/25/20 15:51 Polyethylene Glycol (Miralax) 17 gm DAILY PRN ORAL CONSTIPATION 05/26/20 16:00 06/25/20 15:59 Promethazine HCl/ Codeine (Phenergan with Codeine) 5 ml Q6H PRN ORAL cough 05/26/20 15:53 06/25/20 15:52 Quetiapine Fumarate (SEROqueL) 150 mg BEDTIME ORAL 05/28/20 21:00 07/11/20 21:29 Sertraline HCl (Zoloft) 150 mg DAILY ORAL 05/27/20 09:00 06/26/20 08:59 05/28/20 09:13 Tamsulosin HCl (Flomax) 0.4 mg DAILY ORAL 05/27/20 09:00 06/26/20 08:59 05/28/20 09:13 Temazepam (Restoril) 15 mg HSPRN PRN ORAL Insomnia 05/28/20 01:00 06/04/20 00:59 05/28/20 01:05 Assessment/Plan Problems: (1) COVID-19 (2) COPD (chronic obstructive pulmonary disease) (3) CAD (coronary artery disease) (4) HTN (hypertension) (5) BPH (benign prostatic hyperplasia) Assessment/Plan Respiratory Isolation titrate fio2 to sat of 92% ABx and antiviral as per ID monitor BP resume long-term meds symptomatic treatment antitussives dvt prophylaxis Maria Eugenia Yeung MD May 28, 2020 11:46
[2020-05-28 12:00] VITALS: BP 129/70
--- NOTE | 2020-05-28 15:53 | Internal Med Progress Note ---
Subjective Physician Name Josiah Rosales Attending Physician Josiah Roasles MD Current Medications Medications (Trade) Dose Ordered Sig/Lewis Route PRN Reason Start Time Stop Time Status Last Admin Dose Admin Acetaminophen (Tylenol) 650 mg Q4H PRN ORAL FEVER 05/26/20 15:53 06/25/20 15:52 Albuterol/ Ipratropium (Combivent Respimat) 1 puff Q4H PRN INH Shortness of Breath 05/27/20 21:30 06/26/20 21:29 05/27/20 21:18 Amlodipine Besylate (Norvasc) 5 mg DAILY ORAL 05/27/20 09:00 06/26/20 08:59 05/28/20 09:13 Aspirin (ASA) 81 mg DAILY ORAL 05/27/20 09:00 07/11/20 08:59 05/28/20 09:13 Azithromycin 250 mg/Dextrose 275 ml @ 275 mls/hr Q24HRS IV 05/26/20 18:00 05/31/20 17:59 05/27/20 18:04 Ceftriaxone Sodium 1 gm/ Dextrose 55 ml @ 110 mls/hr Q24H IVPB 05/26/20 21:00 06/02/20 20:59 05/27/20 21:18 Dexamethasone (Decadron) 6 mg DAILY ORAL 05/27/20 09:00 06/26/20 08:59 05/28/20 10:25 Dextrose (Dextrose 50%) 25 ml Q30M PRN IV Hypoglycemia 05/26/20 15:52 08/24/20 15:51 Dextrose (Dextrose 50%) 50 ml Q30M PRN IV Hypoglycemia 05/26/20 15:52 08/24/20 15:51 Heparin Sodium (Porcine) (Heparin 5000 units/ml) 5,000 units EVERY 12 HOURS SUBQ 05/26/20 21:00 07/10/20 20:59 05/28/20 09:14 Ondansetron HCl (Zofran) 4 mg Q6H PRN IVP Nausea & Vomiting 05/26/20 15:52 06/25/20 15:51 Polyethylene Glycol (Miralax) 17 gm DAILY PRN ORAL CONSTIPATION 05/26/20 16:00 06/25/20 15:59 Promethazine HCl/ Codeine (Phenergan with Codeine) 5 ml Q6H PRN ORAL cough 05/26/20 15:53 06/25/20 15:52 Quetiapine Fumarate (SEROqueL) 150 mg BEDTIME ORAL 05/28/20 21:00 07/11/20 21:29 Sertraline HCl (Zoloft) 150 mg DAILY ORAL 05/27/20 09:00 06/26/20 08:59 05/28/20 09:13 Tamsulosin HCl (Flomax) 0.4 mg DAILY ORAL 05/27/20 09:00 06/26/20 08:59 05/28/20 09:13 Temazepam (Restoril) 15 mg HSPRN PRN ORAL Insomnia 05/28/20 01:00 06/04/20 00:59 05/28/20 01:05 Allergies: Coded Allergies: No Known Allergies (Unverified , 05/26/20) Subjective Awake, alert, responsive, denies any chest pain, decreased shortness of breath, WBC: 14.5 on Decadron Objective Last Vital Signs Date Time Temp Pulse Resp B/P (MAP) Pulse Ox O2 Delivery O2 Flow Rate FiO2 05/28/20 12:00 97.3 90 20 129/70 (89) 96 05/28/20 09:00 Nasal Cannula 2.0 05/28/20 07:00 28 Laboratory Tests Test 05/28/20 05:40 White Blood Count 14.5 K/UL (4.8-10.8) H Red Blood Count 3.28 M/UL (4.70-6.10) L Hemoglobin 12.1 G/DL (14.2-18.0) L Hematocrit 34.0 % (42.0-52.0) L Mean Corpuscular Volume 104 FL (80-99) H Mean Corpuscular Hemoglobin 36.8 PG (27.0-31.0) H Mean Corpuscular Hemoglobin Concent 35.4 G/DL (32.0-36.0) Red Cell Distribution Width 12.2 % (11.6-14.8) Platelet Count 301 K/UL (150-450) Mean Platelet Volume 4.7 FL (6.5-10.1) L Neutrophils (%) (Auto) 82.2 % (45.0-75.0) H Lymphocytes (%) (Auto) 10.4 % (20.0-45.0) L Monocytes (%) (Auto) 6.1 % (1.0-10.0) Eosinophils (%) (Auto) 0.8 % (0.0-3.0) Basophils (%) (Auto) 0.5 % (0.0-2.0) Erythrocyte Sedimentation Rate 95 MM/HR (0-20) H Sodium Level 133 MMOL/L (136-145) L Potassium Level 4.2 MMOL/L (3.5-5.1) Chloride Level 99 MMOL/L (98-107) Carbon Dioxide Level 31 MMOL/L (21-32) Anion Gap 3 mmol/L (5-15) L Blood Urea Nitrogen 18 mg/dL (7-18) Creatinine 0.9 MG/DL (0.55-1.30) Estimat Glomerular Filtration Rate > 60 mL/min (>60) Glucose Level 87 MG/DL (74-106) Lactic Acid Level 1.00 mmol/L (0.4-2.0) Calcium Level 8.7 MG/DL (8.5-10.1) Total Bilirubin 0.3 MG/DL (0.2-1.0) Aspartate Amino Transf (AST/SGOT) 69 U/L (15-37) H Alanine Aminotransferase (ALT/SGPT) 113 U/L (12-78) H Alkaline Phosphatase 89 U/L (46-116) C-Reactive Protein, Quantitative 2.5 mg/dL (0.00-0.90) H Total Protein 7.1 G/DL (6.4-8.2) Albumin 2.3 G/DL (3.4-5.0) L Globulin 4.8 g/dL Albumin/Globulin Ratio 0.5 (1.0-2.7) L Amylase Level 149 U/L (25-115) H Lipase 349 U/L (73-393) Microbiology Date/Time Source Procedure Growth Status 05/26/20 10:00 Rectum VRE Culture - Final Enterococcus Faecium - Vre Complete 05/26/20 10:00 Nasal Nares - Final Complete 05/26/20 10:00 Nasal Nares - Final Complete Intake and Output 05/27/20 05/28/20 19:00 07:00 Intake Total 310 ml Balance 310 ml Intake Oral 200 ml IV Total 110 ml # Voids 2 Objective GENERAL: Patient awake, responsive, in no acute distress. HEAD AND NECK: Pupils are equal and reactive to light. Extraocular movements are intact. Neck was supple. No JVD. LUNGS: Good air entry. Positive wheezes. No rales. Decreased air in bases. HEART: S1, S2. Distant heart sounds. No murmur or gallops. ABDOMEN: Soft, nondistended, nontender. Positive bowel sounds. EXTREMITIES: No cyanosis, clubbing, or edema. NEUROLOGIC: Cranial nerves II through XII grossly intact. Patient moving all the extremities spontaneously. RECTAL: Refused and deferred. GENITOURINARY: Refused and deferred. PSYCHIATRIC: Mood and affect is intact. Assessment/Plan Assessment/Plan ASSESSMENT: 1. COVID-19 pneumonia. 2. Acute hypoxemic respiratory failure. 3. Hyponatremia. 4. 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 5. Dyslipidemia. 6. Depression. 7. BPH. PLAN: Medical unit. Monitor laboratory and cultures. on Decadron Consider Remdesivir if the patient's status is not improving. Duplex of lower extremity negative for acute DVT. Code status is Full Code. DVT prophylaxis: Heparin subcu. Dr. Yeung, Pulmonary Critical Care and Dr. Garcia from Infectious Disease. Titrate fio2 to sat of 92% Josiah Rosales MD May 28, 2020 15:53
[2020-05-28 16:00] VITALS: BP 128/61
[2020-05-28] MEDS: Azithromycin 250 MG in D5W 275 ML IV SCH (17:02)
--- NOTE | 2020-05-28 17:36 | Consultation ---
History of Present Illness General Date patient seen: May 28, 2020 Reason for Hospitalization: Dyspnea/Respdistress Present Illness HPI 84 year old male snf resident with multiple medical comorbidities presented [place] [facility] [place] of covid 19 sob respiratory symptoms. on admission noted to have elevated lft's worsening .surgery called to evaluate and assist with care. patient seen, chart reviewed, patient examined. Allergies: Coded Allergies: No Known Allergies (Unverified , 05/26/20) COVID-19 Screening Contact w/high risk pt: Yes Experienced COVID-19 symptoms?: Yes Coronavirus symptoms experienc: Chills, Fatigue, Shortness of Breath, Cough Medication History Scheduled Amlodipine Besylate* (Amlodipine Besylate*), 5 MG ORAL DAILY, (Reported) Aspirin* (Aspirin*), 81 MG ORAL DAILY, (Reported) Atorvastatin Calcium* (Atorvastatin Calcium*), 20 MG ORAL BEDTIME, (Reported) Atorvastatin Calcium* (Lipitor*), 10 MG ORAL BEDTIME, (Reported) Atorvastatin Calcium* (Lipitor*), 10 MG ORAL BEDTIME, (Reported) Dorzolamide Hcl* (Trusopt*), 1 DROP BOTH EYES TID, (Reported) Lorazepam* (Ativan*), 0.5 MG ORAL THREE TIMES A DAY, (Reported) Montelukast Sodium* (Montelukast Sodium*), 10 MG ORAL DAILY, (Reported) Omeprazole (Omeprazole), 40 MG ORAL DAILY, (Reported) Quetiapine Fumarate* (Quetiapine Fumarate*), 150 MG ORAL BEDTIME, (Reported) Ranolazine* (Ranexa*), 500 MG ORAL EVERY 12 HOURS, (Reported) Sertraline Hcl* (Zoloft*), 150 MG ORAL DAILY, (Reported) Tamsulosin HCl (Flomax), 0.4 MG ORAL DAILY, (Reported) Scheduled PRN Ipratropium [place] 0.5MG/2.5ML (Ipratropium [place] 0.5MG/2.5ML), 0.5 MG HHN Q6H PRN for Shortness of Breath, (Reported) Miscellaneous Medications Linaclotide (Linzess), 145 MCG PO, (Reported) Patient History Limited by: medical condition History Provided By: Medical Record, PMD Healthcare decision maker Resuscitation status Advanced Directive on File Past Medical/Surgical History Past Medical/Surgical History: (1) CAD (coronary artery disease) (2) HTN (hypertension) (3) Hyponatremia (4) UTI (urinary tract infection) (5) Pneumonia (6) COVID-19 (7) BPH (benign prostatic hyperplasia) (8) COPD (chronic obstructive pulmonary disease) Review of Systems Review of Symptoms General ROS: no weight loss or fever Psychological ROS: no depression or mood changes, no memory loss Ophthalmic ROS: no visual changes or eye irritation ENT ROS: no nasal congestion, hearing loss, dizziness Allergy and Immunology ROS: no allergic symptoms or urticaria Hematological and Lymphatic ROS: no swollen glands, unusual bleeding or bruising Endocrine ROS: no polyuria, polydipsia, weight changes, temperature intolerance Respiratory ROS: no cough, shortness of breath, or wheezing Cardiovascular ROS: no chest pain or dyspnea on exertion Gastrointestinal ROS: denies abdominal pain, bright red blood in stool. Musculoskeletal ROS: no myalgias or arthralgias Neurological ROS: no TIA or stroke symptoms Dermatological ROS: no new or changing skin lesions, rashes or pruritis Physical Exam Physical Exam General appearance: alert, cooperative, no distress, appears stated age Head: Normocephalic, without obvious abnormality, atraumatic Eyes: conjunctivae/corneas clear. PERRL, EOM's intact. Fundi benign Throat: Lips, mucosa, and tongue normal. Teeth and gums normal Neck: supple, symmetrical, trachea midline, no adenopathy, thyroid: not enlarged, symmetric, no tenderness/mass/nodules, no carotid bruit and no JVD Lungs: clear to auscultation bilaterally Heart: regular rate and rhythm, S1, S2 normal, no murmur, click, rub or gallop Abdomen: soft, non-tender. Bowel sounds normal. No masses, no organomegaly Extremities: extremities normal, atraumatic, no cyanosis or edema Pulses: 2+ and symmetric Skin: Skin color, texture, turgor normal. No rashes or lesions Neurologic: Grossly normal Last 24 Hour Vital Signs Date Time Temp Pulse Resp B/P (MAP) Pulse Ox O2 Delivery O2 Flow Rate FiO2 05/28/20 16:00 97.4 89 20 128/61 (83) 97 05/28/20 12:00 97.3 90 20 129/70 (89) 96 05/28/20 09:13 95 138/73 05/28/20 09:00 Nasal Cannula 2.0 05/28/20 08:00 97.5 85 20 138/73 (94) 96 05/28/20 07:00 85 18 96 Nasal Cannula 2.0 28 05/28/20 04:00 97.7 79 17 133/78 (96) 99 05/28/20 00:00 97.7 91 18 125/72 (89) 98 05/27/20 21:00 Nasal Cannula 2.0 05/27/20 20:00 98.1 86 16 128/81 (97) 98 Intake and Output 05/27/20 05/28/20 19:00 07:00 Intake Total 310 ml Balance 310 ml Intake Oral 200 ml IV Total 110 ml # Voids 2 Laboratory Tests Test 05/28/20 05:40 White Blood Count 14.5 K/UL (4.8-10.8) H Red Blood Count 3.28 M/UL (4.70-6.10) L Hemoglobin 12.1 G/DL (14.2-18.0) L Hematocrit 34.0 % (42.0-52.0) L Mean Corpuscular Volume 104 FL (80-99) H Mean Corpuscular Hemoglobin 36.8 PG (27.0-31.0) H Mean Corpuscular Hemoglobin Concent 35.4 G/DL (32.0-36.0) Red Cell Distribution Width 12.2 % (11.6-14.8) Platelet Count 301 K/UL (150-450) Mean Platelet Volume 4.7 FL (6.5-10.1) L Neutrophils (%) (Auto) 82.2 % (45.0-75.0) H Lymphocytes (%) (Auto) 10.4 % (20.0-45.0) L Monocytes (%) (Auto) 6.1 % (1.0-10.0) Eosinophils (%) (Auto) 0.8 % (0.0-3.0) Basophils (%) (Auto) 0.5 % (0.0-2.0) Erythrocyte Sedimentation Rate 95 MM/HR (0-20) H Sodium Level 133 MMOL/L (136-145) L Potassium Level 4.2 MMOL/L (3.5-5.1) Chloride Level 99 MMOL/L (98-107) Carbon Dioxide Level 31 MMOL/L (21-32) Anion Gap 3 mmol/L (5-15) L Blood Urea Nitrogen 18 mg/dL (7-18) Creatinine 0.9 MG/DL (0.55-1.30) Estimat Glomerular Filtration Rate > 60 mL/min (>60) Glucose Level 87 MG/DL (74-106) Lactic Acid Level 1.00 mmol/L (0.4-2.0) Calcium Level 8.7 MG/DL (8.5-10.1) Total Bilirubin 0.3 MG/DL (0.2-1.0) Aspartate Amino Transf (AST/SGOT) 69 U/L (15-37) H Alanine Aminotransferase (ALT/SGPT) 113 U/L (12-78) H Alkaline Phosphatase 89 U/L (46-116) C-Reactive Protein, Quantitative 2.5 mg/dL (0.00-0.90) H Total Protein 7.1 G/DL (6.4-8.2) Albumin 2.3 G/DL (3.4-5.0) L Globulin 4.8 g/dL Albumin/Globulin Ratio 0.5 (1.0-2.7) L Amylase Level 149 U/L (25-115) H Lipase 349 U/L (73-393) Height (Feet): 5 Height (Inches): 6.00 Weight (Pounds): 145 Medications Current Medications Medications (Trade) Dose Ordered Sig/Lewis Route PRN Reason Start Time Stop Time Status Last Admin Dose Admin Acetaminophen (Tylenol) 650 mg Q4H PRN ORAL FEVER 05/26/20 15:53 06/25/20 15:52 Albuterol/ Ipratropium (Combivent Respimat) 1 puff Q4H PRN INH Shortness of Breath 05/27/20 21:30 06/26/20 21:29 05/27/20 21:18 Amlodipine Besylate (Norvasc) 5 mg DAILY ORAL 05/27/20 09:00 06/26/20 08:59 05/28/20 09:13 Aspirin (ASA) 81 mg DAILY ORAL 05/27/20 09:00 07/11/20 08:59 05/28/20 09:13 Azithromycin 250 mg/Dextrose 275 ml @ 275 mls/hr Q24HRS IV 05/26/20 18:00 05/31/20 17:59 05/28/20 17:02 Ceftriaxone Sodium 1 gm/ Dextrose 55 ml @ 110 mls/hr Q24H IVPB 05/26/20 21:00 06/02/20 20:59 05/27/20 21:18 Dexamethasone (Decadron) 6 mg DAILY ORAL 05/27/20 09:00 06/26/20 08:59 05/28/20 10:25 Dextrose (Dextrose 50%) 25 ml Q30M PRN IV Hypoglycemia 05/26/20 15:52 08/24/20 15:51 Dextrose (Dextrose 50%) 50 ml Q30M PRN IV Hypoglycemia 05/26/20 15:52 08/24/20 15:51 Heparin Sodium (Porcine) (Heparin 5000 units/ml) 5,000 units EVERY 12 HOURS SUBQ 05/26/20 21:00 07/10/20 20:59 05/28/20 09:14 Ondansetron HCl (Zofran) 4 mg Q6H PRN IVP Nausea & Vomiting 05/26/20 15:52 06/25/20 15:51 Polyethylene Glycol (Miralax) 17 gm DAILY PRN ORAL CONSTIPATION 05/26/20 16:00 06/25/20 15:59 Promethazine HCl/ Codeine (Phenergan with Codeine) 5 ml Q6H PRN ORAL cough 05/26/20 15:53 06/25/20 15:52 Quetiapine Fumarate (SEROqueL) 150 mg BEDTIME ORAL 05/28/20 21:00 07/11/20 21:29 Sertraline HCl (Zoloft) 150 mg DAILY ORAL 05/27/20 09:00 06/26/20 08:59 05/28/20 09:13 Tamsulosin HCl (Flomax) 0.4 mg DAILY ORAL 05/27/20 09:00 06/26/20 08:59 05/28/20 09:13 Temazepam (Restoril) 15 mg HSPRN PRN ORAL Insomnia 05/28/20 01:00 06/04/20 00:59 05/28/20 01:05 Assessment/Plan Problem List: (1) Abnormal LFTs Assessment & Plan: 84M abnormal lf'ts worsening ast/alt tending up covid + no bleeding no n/v cxr noted on abx meds reviewed US pending once negative trend labs lip nml esr elevated will follow with recs ICD Codes: R94.5 - Abnormal results of liver function studies SNOMED: 735955813 (2) CAD (coronary artery disease) ICD Codes: I25.10 - Atherosclerotic heart disease of [place] coronary artery without angina pectoris SNOMED: 07461622 (3) HTN (hypertension) ICD Codes: I10 - Essential (primary) hypertension SNOMED: 63915451 (4) Hyponatremia ICD Codes: E87.1 - Hypo-osmolality and hyponatremia SNOMED: 14849966 (5) UTI (urinary tract infection) ICD Codes: N39.0 - Urinary tract infection, site not specified SNOMED: 39762062 (6) Pneumonia ICD Codes: J18.9 - Pneumonia, unspecified organism SNOMED: 216253770 (7) COVID-19 Assessment & Plan: ++ There are patchy bilateral diffuse peripheral ground glass alveolar infiltrates consistent with pneumonia. The infiltrates are typical of Covid 19. tx per ID and pulm ICD Codes: U07.1 - COVID-19 SNOMED: 801618274 (8) BPH (benign prostatic hyperplasia) ICD Codes: N40.0 - Benign prostatic hyperplasia without lower urinary tract symptoms SNOMED: 065071335 (9) COPD (chronic obstructive pulmonary disease) ICD Codes: J44.9 - Chronic obstructive pulmonary disease, unspecified SNOMED: 22476921 Jad Whalen May 28, 2020 17:36
[2020-05-28 20:00] VITALS: BP 127/66
[2020-05-28] MEDS: cefTRIAXone 1 GM in D5W 55 ML IVPB SCH (20:13)
[2020-05-28] MEDS: Promethazine/Codeine 5ml UD ORAL PRN (21:59)
[2020-05-29] VITALS: BP 131/81
[2020-05-29 04:00] VITALS: BP 122/64
[2020-05-29 06:40] LABS: BASOPHILS % (AUTO) 0.8 % (0.0-2.0); EOSINOPHILS % (AUTO) 1.8 % (0.0-3.0); HEMATOCRIT 31.6 % (42.0-52.0); LYMPHOCYTES % (AUTO) 13.9 % (20.0-45.0); MEAN CORPUSCULAR VOLUME 105 FL (80-99); MONOCYTES % (AUTO) 8.3 % (1.0-10.0); NEUTROPHILS % (AUTO) 75.2 % (45.0-75.0); PLATELET COUNT 290 K/UL (150-450); RED BLOOD COUNT 3.02 M/UL (4.70-6.10); RED CELL DISTRIBUTION WIDTH 12.2 % (11.6-14.8); WHITE BLOOD COUNT 12.3 K/UL (4.8-10.8)
[2020-05-29 07:13] LABS: ALANINE AMINOTRANSFERASE 121 U/L (12-78); ALBUMIN 2.2 G/DL (3.4-5.0); ALBUMIN/GLOBULIN RATIO 0.5 (1.0-2.7); ALKALINE PHOSPHATASE 79 U/L (46-116); ASPARTATE AMINO TRANSFERASE 67 U/L (15-37); BILIRUBIN,TOTAL 0.2 MG/DL (0.2-1.0); BLOOD UREA NITROGEN 19 mg/dL (7-18); CALCIUM 8.3 MG/DL (8.5-10.1); CARBON DIOXIDE 35 MMOL/L (21-32); CHLORIDE 100 MMOL/L (98-107); CREATININE 0.9 MG/DL (0.55-1.30); PHOSPHORUS 3.3 MG/DL (2.5-4.9); POTASSIUM 4.2 MMOL/L (3.5-5.1); SODIUM 134 MMOL/L (136-145)
[2020-05-29 07:18] LABS: ANION GAP 0 mmol/L (5-15)
[2020-05-29 08:00] VITALS: BP 125/72
--- NOTE | 2020-05-29 09:09 | Consultation ---
History of Present Illness General Date patient seen: May 29, 2020 Time patient seen: 11:32 Chief Complaint: Dyspnea/Respdistress Referring physician: Dr. Rosales Reason for Consultation: COVID+ Present Illness HPI 84yo M w/ COVID d/x'd 05/20, who presents from SNF with hypoxia. ID c/s given COVID pna Pt has been AF in house, satting 97-98% on only 2L NC. Has new leukocytosis while on steroids. NAD in bed Denies any pain or allergies Doing ok Allergies: Coded Allergies: No Known Allergies (Unverified , 05/26/20) Medication History Scheduled Amlodipine Besylate* (Amlodipine Besylate*), 5 MG ORAL DAILY, (Reported) Aspirin* (Aspirin*), 81 MG ORAL DAILY, (Reported) Atorvastatin Calcium* (Atorvastatin Calcium*), 20 MG ORAL BEDTIME, (Reported) Atorvastatin Calcium* (Lipitor*), 10 MG ORAL BEDTIME, (Reported) Atorvastatin Calcium* (Lipitor*), 10 MG ORAL BEDTIME, (Reported) Dorzolamide Hcl* (Trusopt*), 1 DROP BOTH EYES TID, (Reported) Lorazepam* (Ativan*), 0.5 MG ORAL THREE TIMES A DAY, (Reported) Montelukast Sodium* (Montelukast Sodium*), 10 MG ORAL DAILY, (Reported) Omeprazole (Omeprazole), 40 MG ORAL DAILY, (Reported) Quetiapine Fumarate* (Quetiapine Fumarate*), 150 MG ORAL BEDTIME, (Reported) Ranolazine* (Ranexa*), 500 MG ORAL EVERY 12 HOURS, (Reported) Sertraline Hcl* (Zoloft*), 150 MG ORAL DAILY, (Reported) Tamsulosin HCl (Flomax), 0.4 MG ORAL DAILY, (Reported) Scheduled PRN Ipratropium [place] 0.5MG/2.5ML (Ipratropium [place] 0.5MG/2.5ML), 0.5 MG HHN Q6H PRN for Shortness of Breath, (Reported) Miscellaneous Medications Linaclotide (Linzess), 145 MCG PO, (Reported) Patient History Healthcare decision maker Resuscitation status Advanced Directive on File Review of Systems ROS Narrative 10-point ROS neg except as noted in HPI Physical Exam Physical Exam Narrative Gen: NAD HEENT: NCAT Pulm: BL chest rise Abd: Non-distended Ext: No c/c/e Skin: No visible rashes Neuro: Awake Last 24 Hour Vital Signs Date Time Temp Pulse Resp B/P (MAP) Pulse Ox O2 Delivery O2 Flow Rate FiO2 05/29/20 04:00 97.5 79 20 122/64 (83) 97 05/29/20 00:00 97.5 75 19 131/81 (98) 98 05/28/20 21:00 Nasal Cannula 2.0 05/28/20 20:09 88 18 97 Nasal Cannula 2.0 28 05/28/20 20:00 98.1 92 20 127/66 (86) 99 05/28/20 16:00 97.4 89 20 128/61 (83) 97 05/28/20 12:00 97.3 90 20 129/70 (89) 96 05/28/20 09:13 95 138/73 Intake and Output 05/28/20 05/29/20 19:00 07:00 Intake Total 200 ml 1010 ml Output Total 900 ml Balance -700 ml 1010 ml Intake Oral 200 ml 650 ml Other 360 ml Output Urine Total 900 ml # Voids 2 7 Laboratory Tests Test 05/29/20 05:00 White Blood Count 12.3 K/UL (4.8-10.8) H Red Blood Count 3.02 M/UL (4.70-6.10) L Hemoglobin 11.0 G/DL (14.2-18.0) L Hematocrit 31.6 % (42.0-52.0) L Mean Corpuscular Volume 105 FL (80-99) H Mean Corpuscular Hemoglobin 36.4 PG (27.0-31.0) H Mean Corpuscular Hemoglobin Concent 34.8 G/DL (32.0-36.0) Red Cell Distribution Width 12.2 % (11.6-14.8) Platelet Count 290 K/UL (150-450) Mean Platelet Volume 4.6 FL (6.5-10.1) L Neutrophils (%) (Auto) 75.2 % (45.0-75.0) H Lymphocytes (%) (Auto) 13.9 % (20.0-45.0) L Monocytes (%) (Auto) 8.3 % (1.0-10.0) Eosinophils (%) (Auto) 1.8 % (0.0-3.0) Basophils (%) (Auto) 0.8 % (0.0-2.0) Erythrocyte Sedimentation Rate 111 MM/HR (0-20) H Sodium Level 134 MMOL/L (136-145) L Potassium Level 4.2 MMOL/L (3.5-5.1) Chloride Level 100 MMOL/L (98-107) Carbon Dioxide Level 35 MMOL/L (21-32) H Anion Gap 0 mmol/L (5-15) L Blood Urea Nitrogen 19 mg/dL (7-18) H Creatinine 0.9 MG/DL (0.55-1.30) Estimat Glomerular Filtration Rate > 60 mL/min (>60) Glucose Level 79 MG/DL (74-106) Calcium Level 8.3 MG/DL (8.5-10.1) L Phosphorus Level 3.3 MG/DL (2.5-4.9) Magnesium Level 2.1 MG/DL (1.8-2.4) Total Bilirubin 0.2 MG/DL (0.2-1.0) Aspartate Amino Transf (AST/SGOT) 67 U/L (15-37) H Alanine Aminotransferase (ALT/SGPT) 121 U/L (12-78) H Alkaline Phosphatase 79 U/L (46-116) C-Reactive Protein, Quantitative 1.5 mg/dL (0.00-0.90) H Total Protein 6.8 G/DL (6.4-8.2) Albumin 2.2 G/DL (3.4-5.0) L Globulin 4.6 g/dL Albumin/Globulin Ratio 0.5 (1.0-2.7) L Height (Feet): 5 Height (Inches): 6.00 Weight (Pounds): 145 Medications Current Medications Medications (Trade) Dose Ordered Sig/Lewis Route PRN Reason Start Time Stop Time Status Last Admin Dose Admin Acetaminophen (Tylenol) 650 mg Q4H PRN ORAL FEVER 05/26/20 15:53 06/25/20 15:52 Albuterol/ Ipratropium (Combivent Respimat) 1 puff Q4H PRN INH Shortness of Breath 05/27/20 21:30 06/26/20 21:29 05/27/20 21:18 Amlodipine Besylate (Norvasc) 5 mg DAILY ORAL 05/27/20 09:00 06/26/20 08:59 05/28/20 09:13 Aspirin (ASA) 81 mg DAILY ORAL 05/27/20 09:00 07/11/20 08:59 05/28/20 09:13 Azithromycin 250 mg/Dextrose 275 ml @ 275 mls/hr Q24HRS IV 05/26/20 18:00 05/31/20 17:59 05/28/20 17:02 Ceftriaxone Sodium 1 gm/ Dextrose 55 ml @ 110 mls/hr Q24H IVPB 05/26/20 21:00 06/02/20 20:59 05/28/20 20:13 Dexamethasone (Decadron) 6 mg DAILY ORAL 05/27/20 09:00 06/26/20 08:59 05/28/20 10:25 Dextrose (Dextrose 50%) 25 ml Q30M PRN IV Hypoglycemia 05/26/20 15:52 08/24/20 15:51 Dextrose (Dextrose 50%) 50 ml Q30M PRN IV Hypoglycemia 05/26/20 15:52 08/24/20 15:51 Heparin Sodium (Porcine) (Heparin 5000 units/ml) 5,000 units EVERY 12 HOURS SUBQ 05/26/20 21:00 07/10/20 20:59 05/28/20 20:15 Ondansetron HCl (Zofran) 4 mg Q6H PRN IVP Nausea & Vomiting 05/26/20 15:52 06/25/20 15:51 Polyethylene Glycol (Miralax) 17 gm DAILY PRN ORAL CONSTIPATION 05/26/20 16:00 06/25/20 15:59 Promethazine HCl/ Codeine (Phenergan with Codeine) 5 ml Q6H PRN ORAL cough 05/26/20 15:53 06/25/20 15:52 05/28/20 21:59 Quetiapine Fumarate (SEROqueL) 150 mg BEDTIME ORAL 05/28/20 21:00 07/11/20 21:29 05/28/20 20:14 Sertraline HCl (Zoloft) 150 mg DAILY ORAL 05/27/20 09:00 06/26/20 08:59 05/28/20 09:13 Tamsulosin HCl (Flomax) 0.4 mg DAILY ORAL 05/27/20 09:00 06/26/20 08:59 05/28/20 09:13 Temazepam (Restoril) 15 mg HSPRN PRN ORAL Insomnia 05/28/20 01:00 06/04/20 00:59 05/28/20 21:18 Assessment/Plan Assessment/Plan: 84yo M with: COVID pna Afebrile Leukocytosis on steroids 05/20 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 The infiltrates are typical of Covid 19. 05/29 CXR: Slight interval worsening aeration with increased streaky opacities at the left base which may potentially be related to subsegmental atelectasis. No significant interval change in patchy bilateral groundglass infiltrates. Elevated LFTs, AST/ALT 67 / 121, trend BUE US neg for DVT From SNF Plan: Cont dexamethasone #4/10 Cont CTX/azithro empiric #4/5 Not candidate for RDV at this time as satting well on only 2L NC This institution does not have access to convalescent plasma, and as pt so many days out from dx at time of admission, unlikely to benefit from it Trend LFTs Monitor CBC/CMP Monitor temp curve, hemodynamics Monitor resp status D/w RN Thank you for this consult. [facility] will continue to follow. Nadine Lynn M.D. May 29, 2020 09:09
[2020-05-29] MEDS: Tamsulosin 0.4mg cap ORAL SCH (09:43)
[2020-05-29] MEDS: Aspirin Baby 81mg ORAL SCH (09:43)
[2020-05-29] MEDS: Sertraline 50mg tab ORAL SCH (09:45)
[2020-05-29] MEDS: Heparin 5000 units/ml inj SUBQ SCH ×2 (09:46→20:36)
--- NOTE | 2020-05-29 10:06 | Diagnostic Imaging Report ---
Indication: Dyspnea Technique: XRAY Chest 1v Comparison: 05/26/2020 Findings: Heart size and mediastinal contours are stable. Again the patient is noted to be status post median sternotomy. Patchy bilateral infiltrates are again seen. There are increased streaky infiltrates at the left base. No pleural effusion or pneumothorax. No acute osseous abnormality. Impression: Slight interval worsening aeration with increased streaky opacities at the left base which may potentially be related to subsegmental atelectasis. No significant interval change in patchy bilateral groundglass infiltrates.
--- NOTE | 2020-05-29 11:51 | Pulmonology Progress Note ---
Subjective ROS Limited/Unobtainable: No Interval Events: doing better Constitutional: Reports: no symptoms HEENT: Repors: no symptoms Allergies: Coded Allergies: No Known Allergies (Unverified , 05/26/20) Objective Last 24 Hour Vital Signs Date Time Temp Pulse Resp B/P (MAP) Pulse Ox O2 Delivery O2 Flow Rate FiO2 05/29/20 09:43 79 122/64 05/29/20 09:00 Nasal Cannula 2.0 05/29/20 08:00 97.7 88 18 125/72 (89) 98 05/29/20 04:00 97.5 79 20 122/64 (83) 97 05/29/20 00:00 97.5 75 19 131/81 (98) 98 05/28/20 21:00 Nasal Cannula 2.0 05/28/20 20:09 88 18 97 Nasal Cannula 2.0 28 05/28/20 20:00 98.1 92 20 127/66 (86) 99 05/28/20 16:00 97.4 89 20 128/61 (83) 97 05/28/20 12:00 97.3 90 20 129/70 (89) 96 Intake and Output 05/28/20 05/29/20 19:00 07:00 Intake Total 200 ml 1010 ml Output Total 900 ml Balance -700 ml 1010 ml Intake Oral 200 ml 650 ml Other 360 ml Output Urine Total 900 ml # Voids 2 7 General Appearance: WD/WN HEENT: normocephalic, atraumatic Respiratory: chest wall non-tender, lungs clear Cardiovascular: normal peripheral pulses, regular rhythm Abdomen: normal bowel sounds, soft, non tender Genitourinary: normal external genitalia Extremities: no clubbing Skin: no rash 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 Laboratory Tests 05/29/20 05:00: White Blood Count 12.3H, Red Blood Count 3.02L, Hemoglobin 11.0L, Hematocrit 31.6L, Mean Corpuscular Volume 105H, Mean Corpuscular Hemoglobin 36.4H, Mean Corpuscular Hemoglobin Concent 34.8, Red Cell Distribution Width 12.2, Platelet Count 290, Mean Platelet Volume 4.6L, Neutrophils (%) (Auto) 75.2H, Lymphocytes (%) (Auto) 13.9L, Monocytes (%) (Auto) 8.3, Eosinophils (%) (Auto) 1.8, Basophils (%) (Auto) 0.8, Erythrocyte Sedimentation Rate 111H, Sodium Level 134L , Potassium Level 4.2, Chloride Level 100, Carbon Dioxide Level 35H, Anion Gap 0L, Blood Urea Nitrogen 19H, Creatinine 0.9, Estimat Glomerular Filtration Rate > 60, Glucose Level 79, Calcium Level 8.3L, Phosphorus Level 3.3, Magnesium Level 2.1, Total Bilirubin 0.2, Aspartate Amino Transf (AST/SGOT) 67H, Alanine Aminotransferase (ALT/SGPT) 121H, Alkaline Phosphatase 79, C-Reactive Protein, Quantitative 1.5H, Total Protein 6.8, Albumin 2.2L, Globulin 4.6, Albumin/Globulin Ratio 0.5L Current Medications Medications (Trade) Dose Ordered Sig/Lewis Route PRN Reason Start Time Stop Time Status Last Admin Dose Admin Acetaminophen (Tylenol) 650 mg Q4H PRN ORAL FEVER 05/26/20 15:53 06/25/20 15:52 Albuterol/ Ipratropium (Combivent Respimat) 1 puff Q4H PRN INH Shortness of Breath 05/27/20 21:30 06/26/20 21:29 05/27/20 21:18 Amlodipine Besylate (Norvasc) 5 mg DAILY ORAL 05/27/20 09:00 06/26/20 08:59 05/29/20 09:43 Aspirin (ASA) 81 mg DAILY ORAL 05/27/20 09:00 07/11/20 08:59 05/29/20 09:43 Azithromycin 250 mg/Dextrose 275 ml @ 275 mls/hr Q24HRS IV 05/26/20 18:00 05/31/20 17:59 05/28/20 17:02 Ceftriaxone Sodium 1 gm/ Dextrose 55 ml @ 110 mls/hr Q24H IVPB 05/26/20 21:00 06/02/20 20:59 05/28/20 20:13 Dexamethasone (Decadron) 6 mg DAILY ORAL 05/27/20 09:00 06/06/20 08:59 05/29/20 09:44 Dextrose (Dextrose 50%) 25 ml Q30M PRN IV Hypoglycemia 05/26/20 15:52 08/24/20 15:51 Dextrose (Dextrose 50%) 50 ml Q30M PRN IV Hypoglycemia 05/26/20 15:52 08/24/20 15:51 Dorzolamide HCl (Trusopt) 1 drop BID BOTH EYES 05/29/20 18:00 06/28/20 17:59 Heparin Sodium (Porcine) (Heparin 5000 units/ml) 5,000 units EVERY 12 HOURS SUBQ 05/26/20 21:00 07/10/20 20:59 05/29/20 09:46 Latanoprost (Xalatan) 1 drop BEDTIME BOTH EYES 05/29/20 21:00 06/28/20 20:59 Ondansetron HCl (Zofran) 4 mg Q6H PRN IVP Nausea & Vomiting 05/26/20 15:52 06/25/20 15:51 Polyethylene Glycol (Miralax) 17 gm DAILY PRN ORAL CONSTIPATION 05/26/20 16:00 06/25/20 15:59 Promethazine HCl/ Codeine (Phenergan with Codeine) 5 ml Q6H PRN ORAL cough 05/26/20 15:53 06/25/20 15:52 05/28/20 21:59 Quetiapine Fumarate (SEROqueL) 150 mg BEDTIME ORAL 05/28/20 21:00 07/11/20 21:29 05/28/20 20:14 Sertraline HCl (Zoloft) 150 mg DAILY ORAL 05/27/20 09:00 06/26/20 08:59 05/29/20 09:45 Tamsulosin HCl (Flomax) 0.4 mg DAILY ORAL 05/27/20 09:00 06/26/20 08:59 05/29/20 09:43 Temazepam (Restoril) 15 mg HSPRN PRN ORAL Insomnia 05/28/20 01:00 06/04/20 00:59 05/28/20 21:18 Assessment/Plan Problems: (1) COVID-19 (2) COPD (chronic obstructive pulmonary disease) (3) CAD (coronary artery disease) (4) HTN (hypertension) (5) BPH (benign prostatic hyperplasia) Assessment/Plan cxr 12:29 Respiratory Isolation titrate fio2 to sat of 92% ABx and antiviral as per ID monitor BP resume skilled nursing meds symptomatic treatment antitussives dvt prophylaxis Maria Eugenia Yeung MD May 29, 2020 11:51
[2020-05-29 12:00] VITALS: BP 121/70
[2020-05-29] MEDS: Promethazine/Codeine 5ml UD ORAL PRN ×2 (13:56→20:36)
--- NOTE | 2020-05-29 14:36 | Surgery Progress Note ---
Surgery Progress Note Subjective Additional Comments wbc improving lft's stable no n/v Objective Last 24 Hour Vital Signs Date Time Temp Pulse Resp B/P (MAP) Pulse Ox O2 Delivery O2 Flow Rate FiO2 05/29/20 12:00 98.1 89 20 121/70 (87) 98 05/29/20 09:43 79 122/64 05/29/20 09:00 Nasal Cannula 2.0 05/29/20 08:00 97.7 88 18 125/72 (89) 98 05/29/20 04:00 97.5 79 20 122/64 (83) 97 05/29/20 00:00 97.5 75 19 131/81 (98) 98 05/28/20 21:00 Nasal Cannula 2.0 05/28/20 20:09 88 18 97 Nasal Cannula 2.0 28 05/28/20 20:00 98.1 92 20 127/66 (86) 99 05/28/20 16:00 97.4 89 20 128/61 (83) 97 I&O Intake and Output 05/28/20 05/29/20 19:00 07:00 Intake Total 200 ml 1010 ml Output Total 900 ml Balance -700 ml 1010 ml Intake Oral 200 ml 650 ml Other 360 ml Output Urine Total 900 ml # Voids 2 7 Dressing: dry Wound: clean Cardiovascular: RSR Respiratory: clear Abdomen: soft, flat, non-tender, present bowel sounds, non-distended Extremities: no edema, no tenderness, no cyanosis Laboratory Tests Test 05/29/20 05:00 White Blood Count 12.3 K/UL (4.8-10.8) H Red Blood Count 3.02 M/UL (4.70-6.10) L Hemoglobin 11.0 G/DL (14.2-18.0) L Hematocrit 31.6 % (42.0-52.0) L Mean Corpuscular Volume 105 FL (80-99) H Mean Corpuscular Hemoglobin 36.4 PG (27.0-31.0) H Mean Corpuscular Hemoglobin Concent 34.8 G/DL (32.0-36.0) Red Cell Distribution Width 12.2 % (11.6-14.8) Platelet Count 290 K/UL (150-450) Mean Platelet Volume 4.6 FL (6.5-10.1) L Neutrophils (%) (Auto) 75.2 % (45.0-75.0) H Lymphocytes (%) (Auto) 13.9 % (20.0-45.0) L Monocytes (%) (Auto) 8.3 % (1.0-10.0) Eosinophils (%) (Auto) 1.8 % (0.0-3.0) Basophils (%) (Auto) 0.8 % (0.0-2.0) Erythrocyte Sedimentation Rate 111 MM/HR (0-20) H Sodium Level 134 MMOL/L (136-145) L Potassium Level 4.2 MMOL/L (3.5-5.1) Chloride Level 100 MMOL/L (98-107) Carbon Dioxide Level 35 MMOL/L (21-32) H Anion Gap 0 mmol/L (5-15) L Blood Urea Nitrogen 19 mg/dL (7-18) H Creatinine 0.9 MG/DL (0.55-1.30) Estimat Glomerular Filtration Rate > 60 mL/min (>60) Glucose Level 79 MG/DL (74-106) Calcium Level 8.3 MG/DL (8.5-10.1) L Phosphorus Level 3.3 MG/DL (2.5-4.9) Magnesium Level 2.1 MG/DL (1.8-2.4) Total Bilirubin 0.2 MG/DL (0.2-1.0) Aspartate Amino Transf (AST/SGOT) 67 U/L (15-37) H Alanine Aminotransferase (ALT/SGPT) 121 U/L (12-78) H Alkaline Phosphatase 79 U/L (46-116) C-Reactive Protein, Quantitative 1.5 mg/dL (0.00-0.90) H Total Protein 6.8 G/DL (6.4-8.2) Albumin 2.2 G/DL (3.4-5.0) L Globulin 4.6 g/dL Albumin/Globulin Ratio 0.5 (1.0-2.7) L Plan Problems: (1) Abnormal LFTs Assessment & Plan: 84M abnormal lf'ts worsening ast/alt tending up covid + no bleeding no n/v cxr noted on abx meds reviewed US pending once negative trend labs lip nml esr elevated will follow with recs (2) CAD (coronary artery disease) (3) HTN (hypertension) (4) Hyponatremia (5) UTI (urinary tract infection) (6) Pneumonia (7) COVID-19 Assessment & Plan: ++ There are patchy bilateral diffuse peripheral ground glass alveolar infiltrates consistent with pneumonia. The infiltrates are typical of Covid 19. tx per ID and pulm (8) BPH (benign prostatic hyperplasia) (9) COPD (chronic obstructive pulmonary disease) Jad Whalen May 29, 2020 14:36
[2020-05-29 16:09] VITALS: BP 125/72
--- NOTE | 2020-05-29 16:51 | Internal Med Progress Note ---
Subjective Date of Service: May 29, 2020 Physician Name Guero Peng Attending Physician Josiah Rosales MD Current Medications Medications (Trade) Dose Ordered Sig/Lewis Route PRN Reason Start Time Stop Time Status Last Admin Dose Admin Acetaminophen (Tylenol) 650 mg Q4H PRN ORAL FEVER 05/26/20 15:53 06/25/20 15:52 Albuterol/ Ipratropium (Combivent Respimat) 1 puff Q4H PRN INH Shortness of Breath 05/27/20 21:30 06/26/20 21:29 05/27/20 21:18 Amlodipine Besylate (Norvasc) 5 mg DAILY ORAL 05/27/20 09:00 06/26/20 08:59 05/29/20 09:43 Aspirin (ASA) 81 mg DAILY ORAL 05/27/20 09:00 07/11/20 08:59 05/29/20 09:43 Azithromycin 250 mg/Dextrose 275 ml @ 275 mls/hr Q24HRS IV 05/26/20 18:00 05/31/20 17:59 05/28/20 17:02 Ceftriaxone Sodium 1 gm/ Dextrose 55 ml @ 110 mls/hr Q24H IVPB 05/26/20 21:00 06/02/20 20:59 05/28/20 20:13 Dexamethasone (Decadron) 6 mg DAILY ORAL 05/27/20 09:00 06/06/20 08:59 05/29/20 09:44 Dextrose (Dextrose 50%) 25 ml Q30M PRN IV Hypoglycemia 05/26/20 15:52 08/24/20 15:51 Dextrose (Dextrose 50%) 50 ml Q30M PRN IV Hypoglycemia 05/26/20 15:52 08/24/20 15:51 Dorzolamide HCl (Trusopt) 1 drop BID BOTH EYES 05/29/20 18:00 06/28/20 17:59 Heparin Sodium (Porcine) (Heparin 5000 units/ml) 5,000 units EVERY 12 HOURS SUBQ 05/26/20 21:00 07/10/20 20:59 05/29/20 09:46 Latanoprost (Xalatan) 1 drop BEDTIME BOTH EYES 05/29/20 21:00 06/28/20 20:59 Ondansetron HCl (Zofran) 4 mg Q6H PRN IVP Nausea & Vomiting 05/26/20 15:52 06/25/20 15:51 Polyethylene Glycol (Miralax) 17 gm DAILY PRN ORAL CONSTIPATION 05/26/20 16:00 06/25/20 15:59 Promethazine HCl/ Codeine (Phenergan with Codeine) 5 ml Q6H PRN ORAL cough 05/26/20 15:53 06/25/20 15:52 05/29/20 13:56 Quetiapine Fumarate (SEROqueL) 150 mg BEDTIME ORAL 05/28/20 21:00 07/11/20 21:29 05/28/20 20:14 Sertraline HCl (Zoloft) 150 mg DAILY ORAL 05/27/20 09:00 06/26/20 08:59 05/29/20 09:45 Tamsulosin HCl (Flomax) 0.4 mg DAILY ORAL 05/27/20 09:00 06/26/20 08:59 05/29/20 09:43 Temazepam (Restoril) 15 mg HSPRN PRN ORAL Insomnia 05/28/20 01:00 06/04/20 00:59 05/28/20 21:18 Allergies: Coded Allergies: No Known Allergies (Unverified , 05/26/20) ROS Limited/Unobtainable: Yes Subjective 84 YO M admitted with shortness of breath and COVID 19 pos. Now pneumonia. Cover for Int Med-DR Rosales Objective Last Vital Signs Date Time Temp Pulse Resp B/P (MAP) Pulse Ox O2 Delivery O2 Flow Rate FiO2 05/29/20 16:09 97.7 91 18 125/72 (89) 98 05/29/20 09:00 Nasal Cannula 2.0 05/28/20 20:09 28 Laboratory Tests Test 05/29/20 05:00 White Blood Count 12.3 K/UL (4.8-10.8) H Red Blood Count 3.02 M/UL (4.70-6.10) L Hemoglobin 11.0 G/DL (14.2-18.0) L Hematocrit 31.6 % (42.0-52.0) L Mean Corpuscular Volume 105 FL (80-99) H Mean Corpuscular Hemoglobin 36.4 PG (27.0-31.0) H Mean Corpuscular Hemoglobin Concent 34.8 G/DL (32.0-36.0) Red Cell Distribution Width 12.2 % (11.6-14.8) Platelet Count 290 K/UL (150-450) Mean Platelet Volume 4.6 FL (6.5-10.1) L Neutrophils (%) (Auto) 75.2 % (45.0-75.0) H Lymphocytes (%) (Auto) 13.9 % (20.0-45.0) L Monocytes (%) (Auto) 8.3 % (1.0-10.0) Eosinophils (%) (Auto) 1.8 % (0.0-3.0) Basophils (%) (Auto) 0.8 % (0.0-2.0) Erythrocyte Sedimentation Rate 111 MM/HR (0-20) H Sodium Level 134 MMOL/L (136-145) L Potassium Level 4.2 MMOL/L (3.5-5.1) Chloride Level 100 MMOL/L (98-107) Carbon Dioxide Level 35 MMOL/L (21-32) H Anion Gap 0 mmol/L (5-15) L Blood Urea Nitrogen 19 mg/dL (7-18) H Creatinine 0.9 MG/DL (0.55-1.30) Estimat Glomerular Filtration Rate > 60 mL/min (>60) Glucose Level 79 MG/DL (74-106) Calcium Level 8.3 MG/DL (8.5-10.1) L Phosphorus Level 3.3 MG/DL (2.5-4.9) Magnesium Level 2.1 MG/DL (1.8-2.4) Total Bilirubin 0.2 MG/DL (0.2-1.0) Aspartate Amino Transf (AST/SGOT) 67 U/L (15-37) H Alanine Aminotransferase (ALT/SGPT) 121 U/L (12-78) H Alkaline Phosphatase 79 U/L (46-116) C-Reactive Protein, Quantitative 1.5 mg/dL (0.00-0.90) H Total Protein 6.8 G/DL (6.4-8.2) Albumin 2.2 G/DL (3.4-5.0) L Globulin 4.6 g/dL Albumin/Globulin Ratio 0.5 (1.0-2.7) L Intake and Output 05/28/20 05/29/20 19:00 07:00 Intake Total 200 ml 1010 ml Output Total 900 ml Balance -700 ml 1010 ml Intake Oral 200 ml 650 ml Other 360 ml Output Urine Total 900 ml # Voids 2 7 Objective PHYSICAL EXAMINATION: GENERAL: Patient awake, responsive, in no acute distress. HEAD AND NECK: Pupils are equal and reactive to light. Extraocular movements are intact. Neck was supple. No JVD. LUNGS: Good air entry. Positive wheezes. No rales. Decreased air in bases. HEART: S1, S2. Distant heart sounds. No murmur or gallops. ABDOMEN: Soft, nondistended, nontender. Positive bowel sounds. EXTREMITIES: No cyanosis, clubbing, or edema. NEUROLOGIC: Cranial nerves II through XII grossly intact. Patient moving all the extremities spontaneously. RECTAL: Refused and deferred. GENITOURINARY: Refused and deferred. PSYCHIATRIC: Mood and affect is intact. Assessment/Plan Assessment/Plan Assessment/Plan Assessment/Plan ASSESSMENT: 1. COVID-19 pneumonia. 2. Acute hypoxemic respiratory failure. 3. Hyponatremia. 4. 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 5. Dyslipidemia. 6. Depression. 7. BPH. PLAN: Medical unit. Monitor laboratory and cultures. on Decadron Consider Remdesivir if the patient's status is not improving. Duplex of lower extremity negative for acute DVT. Code status is Full Code. DVT prophylaxis: Heparin subcu. Dr. Yeung=Pulmonary Critical Care and Dr. Garcia = Infectious Disease. Titrate FIO2 to sat of 92% ABX=azithromycin and ceftriaxone Guero Peng MD May 29, 2020 16:51
[2020-05-29] MEDS: Dorzolamide 2% 10ml Btl BOTH EYES SCH (17:16)
[2020-05-29] MEDS: Azithromycin 250 MG in D5W 275 ML IV SCH (17:47)
[2020-05-29 20:00] VITALS: BP 111/71
[2020-05-29] MEDS: Latanoprost 0.005% Opth 2.5ml Soln BOTH EYES SCH (20:34)
[2020-05-29] MEDS: cefTRIAXone 1 GM in D5W 55 ML IVPB SCH (20:34)
[2020-05-30] VITALS: BP 107/73
[2020-05-30 04:00] VITALS: BP 115/68
[2020-05-30 07:11] LABS: BASOPHILS % (AUTO) 0.6 % (0.0-2.0); EOSINOPHILS % (AUTO) 1.6 % (0.0-3.0); HEMATOCRIT 39.4 % (42.0-52.0); HEMOGLOBIN 13.1 G/DL (14.2-18.0); LYMPHOCYTES % (AUTO) 13.8 % (20.0-45.0); MEAN CORPUSCULAR VOLUME 107 FL (80-99); PLATELET COUNT 282 K/UL (150-450); RED BLOOD COUNT 3.68 M/UL (4.70-6.10); RED CELL DISTRIBUTION WIDTH 12.8 % (11.6-14.8)
[2020-05-30 07:37] LABS: ALBUMIN 2.5 G/DL (3.4-5.0); ALBUMIN/GLOBULIN RATIO 0.5 (1.0-2.7); ALKALINE PHOSPHATASE 89 U/L (46-116); ANION GAP 2 mmol/L (5-15); ASPARTATE AMINO TRANSFERASE 53 U/L (15-37); BILIRUBIN,TOTAL 0.4 MG/DL (0.2-1.0); BLOOD UREA NITROGEN 21 mg/dL (7-18); CALCIUM 8.6 MG/DL (8.5-10.1); CARBON DIOXIDE 33 MMOL/L (21-32); CHLORIDE 99 MMOL/L (98-107); PHOSPHORUS 3.6 MG/DL (2.5-4.9); POTASSIUM 4.3 MMOL/L (3.5-5.1); SODIUM 134 MMOL/L (136-145)
[2020-05-30 08:00] VITALS: BP 115/63
[2020-05-30 08:36] LABS: ALANINE AMINOTRANSFERASE 117 U/L (12-78)
--- NOTE | 2020-05-30 08:50 | Infectious Diseases Prog Note ---
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 The infiltrates are typical of Covid 19. 05/29 CXR: Slight interval worsening aeration with increased streaky opacities at the left base which may potentially be related to subsegmental atelectasis. No significant interval change in patchy bilateral groundglass infiltrates. Elevated LFTs, AST/ALT 67 / 121, trend BUE US neg for DVT From SNF Plan: Cont dexamethasone #5/10 Cont CTX/azithro empiric #5/5 Not candidate for RDV at this time as satting well on only 2L NC This institution does not have access to convalescent plasma, and as pt so many days out from dx at time of admission, unlikely to benefit from it Trend LFTs Monitor CBC/CMP Monitor temp curve, hemodynamics Monitor resp status D/w RN Thank you for this consult. [facility] will continue to follow. Subjective Allergies: Coded Allergies: No Known Allergies (Unverified , 05/26/20) AF Satting well on 2L NC WBC 12, stable NAD Objective Last 24 Hour Vital Signs Date Time Temp Pulse Resp B/P (MAP) Pulse Ox O2 Delivery O2 Flow Rate FiO2 05/30/20 04:00 97.6 89 20 115/68 (84) 96 05/30/20 00:00 98.1 92 20 107/73 (84) 96 05/29/20 21:00 Nasal Cannula 2.0 05/29/20 20:00 97.8 94 20 111/71 (84) 95 05/29/20 16:09 97.7 91 18 125/72 (89) 98 05/29/20 12:00 98.1 89 20 121/70 (87) 98 05/29/20 09:43 79 122/64 05/29/20 09:00 Nasal Cannula 2.0 Height (Feet): 5 Height (Inches): 6.00 Weight (Pounds): 145 Gen: NAD HEENT: NCAT Pulm: BL chest rise Abd: Non-distended Ext: No c/c/e Skin: No visible rashes Neuro: Awake Laboratory Tests Test 05/30/20 04:00 White Blood Count 12.0 K/UL (4.8-10.8) H Red Blood Count 3.68 M/UL (4.70-6.10) L Hemoglobin 13.1 G/DL (14.2-18.0) L Hematocrit 39.4 % (42.0-52.0) L Mean Corpuscular Volume 107 FL (80-99) H Mean Corpuscular Hemoglobin 35.6 PG (27.0-31.0) H Mean Corpuscular Hemoglobin Concent 33.3 G/DL (32.0-36.0) Red Cell Distribution Width 12.8 % (11.6-14.8) Platelet Count 282 K/UL (150-450) Mean Platelet Volume 4.4 FL (6.5-10.1) L Neutrophils (%) (Auto) 77.0 % (45.0-75.0) H Lymphocytes (%) (Auto) 13.8 % (20.0-45.0) L Monocytes (%) (Auto) 7.0 % (1.0-10.0) Eosinophils (%) (Auto) 1.6 % (0.0-3.0) Basophils (%) (Auto) 0.6 % (0.0-2.0) Erythrocyte Sedimentation Rate 76 MM/HR (0-20) H Sodium Level 134 MMOL/L (136-145) L Potassium Level 4.3 MMOL/L (3.5-5.1) Chloride Level 99 MMOL/L (98-107) Carbon Dioxide Level 33 MMOL/L (21-32) H Anion Gap 2 mmol/L (5-15) L Blood Urea Nitrogen 21 mg/dL (7-18) H Creatinine 1.0 MG/DL (0.55-1.30) Estimat Glomerular Filtration Rate > 60 mL/min (>60) Glucose Level 72 MG/DL (74-106) L Calcium Level 8.6 MG/DL (8.5-10.1) Phosphorus Level 3.6 MG/DL (2.5-4.9) Magnesium Level 1.9 MG/DL (1.8-2.4) Total Bilirubin 0.4 MG/DL (0.2-1.0) Aspartate Amino Transf (AST/SGOT) 53 U/L (15-37) H Alanine Aminotransferase (ALT/SGPT) 117 U/L (12-78) H Alkaline Phosphatase 89 U/L (46-116) C-Reactive Protein, Quantitative 1.3 mg/dL (0.00-0.90) H Total Protein 7.4 G/DL (6.4-8.2) Albumin 2.5 G/DL (3.4-5.0) L Globulin 4.9 g/dL Albumin/Globulin Ratio 0.5 (1.0-2.7) L Current Medications Medications (Trade) Dose Ordered Sig/Lewis Route PRN Reason Start Time Stop Time Status Last Admin Dose Admin Acetaminophen (Tylenol) 650 mg Q4H PRN ORAL FEVER 05/26/20 15:53 06/25/20 15:52 Albuterol/ Ipratropium (Combivent Respimat) 1 puff Q4H PRN INH Shortness of Breath 05/27/20 21:30 06/26/20 21:29 05/27/20 21:18 Amlodipine Besylate (Norvasc) 5 mg DAILY ORAL 05/27/20 09:00 06/26/20 08:59 05/29/20 09:43 Aspirin (ASA) 81 mg DAILY ORAL 05/27/20 09:00 07/11/20 08:59 05/29/20 09:43 Azithromycin 250 mg/Dextrose 275 ml @ 275 mls/hr Q24HRS IV 05/26/20 18:00 05/31/20 17:59 05/29/20 17:47 Ceftriaxone Sodium 1 gm/ Dextrose 55 ml @ 110 mls/hr Q24H IVPB 05/26/20 21:00 06/02/20 20:59 05/29/20 20:34 Dexamethasone (Decadron) 6 mg DAILY ORAL 05/27/20 09:00 06/06/20 08:59 05/29/20 09:44 Dextrose (Dextrose 50%) 25 ml Q30M PRN IV Hypoglycemia 05/26/20 15:52 08/24/20 15:51 Dextrose (Dextrose 50%) 50 ml Q30M PRN IV Hypoglycemia 05/26/20 15:52 08/24/20 15:51 Dorzolamide HCl (Trusopt) 1 drop BID BOTH EYES 05/29/20 18:00 06/28/20 17:59 05/29/20 17:16 Heparin Sodium (Porcine) (Heparin 5000 units/ml) 5,000 units EVERY 12 HOURS SUBQ 05/26/20 21:00 07/10/20 20:59 05/29/20 20:36 Latanoprost (Xalatan) 1 drop BEDTIME BOTH EYES 05/29/20 21:00 06/28/20 20:59 05/29/20 20:34 Ondansetron HCl (Zofran) 4 mg Q6H PRN IVP Nausea & Vomiting 05/26/20 15:52 06/25/20 15:51 Polyethylene Glycol (Miralax) 17 gm DAILY PRN ORAL CONSTIPATION 05/26/20 16:00 06/25/20 15:59 Promethazine HCl/ Codeine (Phenergan with Codeine) 5 ml Q6H PRN ORAL cough 05/26/20 15:53 06/25/20 15:52 05/29/20 20:36 Quetiapine Fumarate (SEROqueL) 150 mg BEDTIME ORAL 05/28/20 21:00 07/11/20 21:29 05/29/20 20:34 Sertraline HCl (Zoloft) 150 mg DAILY ORAL 05/27/20 09:00 06/26/20 08:59 05/29/20 09:45 Tamsulosin HCl (Flomax) 0.4 mg DAILY ORAL 05/27/20 09:00 06/26/20 08:59 05/29/20 09:43 Temazepam (Restoril) 15 mg HSPRN PRN ORAL Insomnia 05/28/20 01:00 06/04/20 00:59 05/29/20 20:36 Nadine Lynn M.D. May 30, 2020 08:50
[2020-05-30] MEDS: Tamsulosin 0.4mg cap ORAL SCH (08:57)
[2020-05-30] MEDS: Sertraline 50mg tab ORAL SCH (08:57)
[2020-05-30] MEDS: Aspirin Baby 81mg ORAL SCH (08:58)
[2020-05-30] MEDS: Heparin 5000 units/ml inj SUBQ SCH ×2 (08:58→20:20)
[2020-05-30] MEDS: Dorzolamide 2% 10ml Btl BOTH EYES SCH ×2 (08:59→17:39)
--- NOTE | 2020-05-30 09:53 | Pulmonology Progress Note ---
Subjective ROS Limited/Unobtainable: Yes Interval Events: doing better Constitutional: Reports: no symptoms HEENT: Repors: no symptoms Allergies: Coded Allergies: No Known Allergies (Unverified , 05/26/20) Objective Last 24 Hour Vital Signs Date Time Temp Pulse Resp B/P (MAP) Pulse Ox O2 Delivery O2 Flow Rate FiO2 05/30/20 08:58 89 115/68 05/30/20 04:00 97.6 89 20 115/68 (84) 96 05/30/20 00:00 98.1 92 20 107/73 (84) 96 05/29/20 21:00 Nasal Cannula 2.0 05/29/20 20:00 97.8 94 20 111/71 (84) 95 05/29/20 16:09 97.7 91 18 125/72 (89) 98 05/29/20 12:00 98.1 89 20 121/70 (87) 98 Intake and Output 05/29/20 05/30/20 19:00 07:00 Intake Total 500 ml 240 ml Output Total 1000 ml 1100 ml Balance -500 ml -860 ml Intake Oral 500 ml 240 ml Output Urine Total 1000 ml 1100 ml # Voids 4 3 General Appearance: WD/WN HEENT: normocephalic, atraumatic Respiratory: chest wall non-tender, lungs clear Cardiovascular: normal peripheral pulses, regular rhythm Abdomen: normal bowel sounds, soft, non tender Genitourinary: normal external genitalia Extremities: no clubbing Skin: no rash 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: 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-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 normal Lymphatic: no neck adenopathy Laboratory Tests 05/30/20 04:00: White Blood Count 12.0H, Red Blood Count 3.68L, Hemoglobin 13.1L, Hematocrit 39.4L, Mean Corpuscular Volume 107H, Mean Corpuscular Hemoglobin 35.6H, Mean Corpuscular Hemoglobin Concent 33.3, Red Cell Distribution Width 12.8, Platelet Count 282, Mean Platelet Volume 4.4L, Neutrophils (%) (Auto) 77.0H, Lymphocytes (%) (Auto) 13.8L, Monocytes (%) (Auto) 7.0, Eosinophils (%) (Auto) 1.6, Basophils (%) (Auto) 0.6, Erythrocyte Sedimentation Rate 76H, Sodium Level 134L, Potassium Level 4.3, Chloride Level 99, Carbon Dioxide Level 33H, Anion Gap 2L, Blood Urea Nitrogen 21H, Creatinine 1.0, Estimat Glomerular Filtration Rate > 60, Glucose Level 72L, Calcium Level 8.6, Phosphorus Level 3.6, Magnesium Level 1.9, Total Bilirubin 0.4, Aspartate Amino Transf (AST/SGOT) 53H, Alanine Aminotransferase (ALT/SGPT) 117H, Alkaline Phosphatase 89, C-Reactive Protein, Quantitative 1.3H, Total Protein 7.4, Albumin 2.5L, Globulin 4.9, Albumin/Globulin Ratio 0.5L Current Medications Medications (Trade) Dose Ordered Sig/Lewis Route PRN Reason Start Time Stop Time Status Last Admin Dose Admin Acetaminophen (Tylenol) 650 mg Q4H PRN ORAL FEVER 05/26/20 15:53 06/25/20 15:52 Albuterol/ Ipratropium (Combivent Respimat) 1 puff Q4H PRN INH Shortness of Breath 05/27/20 21:30 06/26/20 21:29 05/27/20 21:18 Amlodipine Besylate (Norvasc) 5 mg DAILY ORAL 05/27/20 09:00 06/26/20 08:59 05/30/20 08:58 Aspirin (ASA) 81 mg DAILY ORAL 05/27/20 09:00 07/11/20 08:59 05/30/20 08:58 Azithromycin 250 mg/Dextrose 275 ml @ 275 mls/hr Q24HRS IV 05/26/20 18:00 05/31/20 17:59 05/29/20 17:47 Ceftriaxone Sodium 1 gm/ Dextrose 55 ml @ 110 mls/hr Q24H IVPB 05/26/20 21:00 06/02/20 20:59 05/29/20 20:34 Dexamethasone (Decadron) 6 mg DAILY ORAL 05/27/20 09:00 06/06/20 08:59 05/30/20 08:58 Dextrose (Dextrose 50%) 25 ml Q30M PRN IV Hypoglycemia 05/26/20 15:52 08/24/20 15:51 Dextrose (Dextrose 50%) 50 ml Q30M PRN IV Hypoglycemia 05/26/20 15:52 08/24/20 15:51 Dorzolamide HCl (Trusopt) 1 drop BID BOTH EYES 05/29/20 18:00 06/28/20 17:59 05/30/20 08:59 Heparin Sodium (Porcine) (Heparin 5000 units/ml) 5,000 units EVERY 12 HOURS SUBQ 05/26/20 21:00 07/10/20 20:59 05/30/20 08:58 Latanoprost (Xalatan) 1 drop BEDTIME BOTH EYES 05/29/20 21:00 06/28/20 20:59 05/29/20 20:34 Ondansetron HCl (Zofran) 4 mg Q6H PRN IVP Nausea & Vomiting 05/26/20 15:52 06/25/20 15:51 Polyethylene Glycol (Miralax) 17 gm DAILY PRN ORAL CONSTIPATION 05/26/20 16:00 06/25/20 15:59 Promethazine HCl/ Codeine (Phenergan with Codeine) 5 ml Q6H PRN ORAL cough 05/26/20 15:53 06/25/20 15:52 05/29/20 20:36 Quetiapine Fumarate (SEROqueL) 150 mg BEDTIME ORAL 05/28/20 21:00 07/11/20 21:29 05/29/20 20:34 Sertraline HCl (Zoloft) 150 mg DAILY ORAL 05/27/20 09:00 06/26/20 08:59 05/30/20 08:57 Tamsulosin HCl (Flomax) 0.4 mg DAILY ORAL 05/27/20 09:00 06/26/20 08:59 05/30/20 08:57 Temazepam (Restoril) 15 mg HSPRN PRN ORAL Insomnia 05/28/20 01:00 06/04/20 00:59 05/29/20 20:36 Assessment/Plan Problems: (1) COVID-19 (2) COPD (chronic obstructive pulmonary disease) (3) CAD (coronary artery disease) (4) HTN (hypertension) (5) BPH (benign prostatic hyperplasia) Assessment/Plan cxr 12:29: Slight interval worsening aeration with increased streaky opacities at the left base which may potentially be related to subsegmental atelectasis. Respiratory Isolation titrate fio2 to sat of 92% ABx and antiviral as per ID monitor BP resume [facility] symptomatic treatment antitussives dvt prophylaxis Maria Eugenia Yeung MD May 30, 2020 09:53
[2020-05-30 12:00] VITALS: BP 132/74
[2020-05-30 16:00] VITALS: BP 130/70
--- NOTE | 2020-05-30 16:53 | Internal Med Progress Note ---
Subjective Date of Service: May 30, 2020 Physician Name Guero Peng Attending Physician Josiah Rosales MD Current Medications Medications (Trade) Dose Ordered Sig/Lewis Route PRN Reason Start Time Stop Time Status Last Admin Dose Admin Acetaminophen (Tylenol) 650 mg Q4H PRN ORAL FEVER 05/26/20 15:53 06/25/20 15:52 Albuterol/ Ipratropium (Combivent Respimat) 1 puff Q4H PRN INH Shortness of Breath 05/27/20 21:30 06/26/20 21:29 05/27/20 21:18 Amlodipine Besylate (Norvasc) 5 mg DAILY ORAL 05/27/20 09:00 06/26/20 08:59 05/30/20 08:58 Aspirin (ASA) 81 mg DAILY ORAL 05/27/20 09:00 07/11/20 08:59 05/30/20 08:58 Azithromycin 250 mg/Dextrose 275 ml @ 275 mls/hr Q24HRS IV 05/26/20 18:00 05/31/20 17:59 05/29/20 17:47 Ceftriaxone Sodium 1 gm/ Dextrose 55 ml @ 110 mls/hr Q24H IVPB 05/26/20 21:00 06/02/20 20:59 05/29/20 20:34 Dexamethasone (Decadron) 6 mg DAILY ORAL 05/27/20 09:00 06/06/20 08:59 05/30/20 08:58 Dextrose (Dextrose 50%) 25 ml Q30M PRN IV Hypoglycemia 05/26/20 15:52 08/24/20 15:51 Dextrose (Dextrose 50%) 50 ml Q30M PRN IV Hypoglycemia 05/26/20 15:52 08/24/20 15:51 Dorzolamide HCl (Trusopt) 1 drop BID BOTH EYES 05/29/20 18:00 06/28/20 17:59 05/30/20 08:59 Heparin Sodium (Porcine) (Heparin 5000 units/ml) 5,000 units EVERY 12 HOURS SUBQ 05/26/20 21:00 07/10/20 20:59 05/30/20 08:58 Latanoprost (Xalatan) 1 drop BEDTIME BOTH EYES 05/29/20 21:00 06/28/20 20:59 05/29/20 20:34 Ondansetron HCl (Zofran) 4 mg Q6H PRN IVP Nausea & Vomiting 05/26/20 15:52 06/25/20 15:51 Polyethylene Glycol (Miralax) 17 gm DAILY PRN ORAL CONSTIPATION 05/26/20 16:00 06/25/20 15:59 Promethazine HCl/ Codeine (Phenergan with Codeine) 5 ml Q6H PRN ORAL cough 05/26/20 15:53 06/25/20 15:52 05/29/20 20:36 Quetiapine Fumarate (SEROqueL) 150 mg BEDTIME ORAL 05/28/20 21:00 07/11/20 21:29 05/29/20 20:34 Sertraline HCl (Zoloft) 150 mg DAILY ORAL 05/27/20 09:00 06/26/20 08:59 05/30/20 08:57 Tamsulosin HCl (Flomax) 0.4 mg DAILY ORAL 05/27/20 09:00 06/26/20 08:59 05/30/20 08:57 Temazepam (Restoril) 15 mg HSPRN PRN ORAL Insomnia 05/28/20 01:00 06/04/20 00:59 05/29/20 20:36 Allergies: Coded Allergies: No Known Allergies (Unverified , 05/26/20) ROS Limited/Unobtainable: Yes Subjective 84 YO M admitted with shortness of breath and COVID 19 pos. Now pneumonia. Cover for Int Med-DR Rosales Objective Last Vital Signs Date Time Temp Pulse Resp B/P (MAP) Pulse Ox O2 Delivery O2 Flow Rate FiO2 05/30/20 16:00 98.1 89 20 130/70 (90) 98 05/30/20 09:00 Nasal Cannula 2.0 05/28/20 20:09 28 Laboratory Tests Test 05/30/20 04:00 White Blood Count 12.0 K/UL (4.8-10.8) H Red Blood Count 3.68 M/UL (4.70-6.10) L Hemoglobin 13.1 G/DL (14.2-18.0) L Hematocrit 39.4 % (42.0-52.0) L Mean Corpuscular Volume 107 FL (80-99) H Mean Corpuscular Hemoglobin 35.6 PG (27.0-31.0) H Mean Corpuscular Hemoglobin Concent 33.3 G/DL (32.0-36.0) Red Cell Distribution Width 12.8 % (11.6-14.8) Platelet Count 282 K/UL (150-450) Mean Platelet Volume 4.4 FL (6.5-10.1) L Neutrophils (%) (Auto) 77.0 % (45.0-75.0) H Lymphocytes (%) (Auto) 13.8 % (20.0-45.0) L Monocytes (%) (Auto) 7.0 % (1.0-10.0) Eosinophils (%) (Auto) 1.6 % (0.0-3.0) Basophils (%) (Auto) 0.6 % (0.0-2.0) Erythrocyte Sedimentation Rate 76 MM/HR (0-20) H Sodium Level 134 MMOL/L (136-145) L Potassium Level 4.3 MMOL/L (3.5-5.1) Chloride Level 99 MMOL/L (98-107) Carbon Dioxide Level 33 MMOL/L (21-32) H Anion Gap 2 mmol/L (5-15) L Blood Urea Nitrogen 21 mg/dL (7-18) H Creatinine 1.0 MG/DL (0.55-1.30) Estimat Glomerular Filtration Rate > 60 mL/min (>60) Glucose Level 72 MG/DL (74-106) L Calcium Level 8.6 MG/DL (8.5-10.1) Phosphorus Level 3.6 MG/DL (2.5-4.9) Magnesium Level 1.9 MG/DL (1.8-2.4) Total Bilirubin 0.4 MG/DL (0.2-1.0) Aspartate Amino Transf (AST/SGOT) 53 U/L (15-37) H Alanine Aminotransferase (ALT/SGPT) 117 U/L (12-78) H Alkaline Phosphatase 89 U/L (46-116) C-Reactive Protein, Quantitative 1.3 mg/dL (0.00-0.90) H Total Protein 7.4 G/DL (6.4-8.2) Albumin 2.5 G/DL (3.4-5.0) L Globulin 4.9 g/dL Albumin/Globulin Ratio 0.5 (1.0-2.7) L Intake and Output 12/29/20 12/30/20 19:00 07:00 Intake Total 500 ml 240 ml Output Total 1000 ml 1100 ml Balance -500 ml -860 ml Intake Oral 500 ml 240 ml Output Urine Total 1000 ml 1100 ml # Voids 4 3 Objective PHYSICAL EXAMINATION: GENERAL: Patient awake, responsive, in no acute distress. HEAD AND NECK: Pupils are equal and reactive to light. Extraocular movements are intact. Neck was supple. No JVD. LUNGS: Good air entry. Positive wheezes. No rales. Decreased air in bases. HEART: S1, S2. Distant heart sounds. No murmur or gallops. ABDOMEN: Soft, nondistended, nontender. Positive bowel sounds. EXTREMITIES: No cyanosis, clubbing, or edema. NEUROLOGIC: Cranial nerves II through XII grossly intact. Patient moving all the extremities spontaneously. RECTAL: Refused and deferred. GENITOURINARY: Refused and deferred. PSYCHIATRIC: Mood and affect is intact. Assessment/Plan Assessment/Plan Assessment/Plan Assessment/Plan ASSESSMENT: 1. COVID-19 pneumonia. 2. Acute hypoxemic respiratory failure. 3. Hyponatremia. 4. 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 5. Dyslipidemia. 6. Depression. 7. BPH. PLAN: Medical unit. Monitor laboratory and cultures. on Decadron Consider Remdesivir if the patient's status is not improving. Duplex of lower extremity negative for acute DVT. Code status is Full Code. DVT prophylaxis: Heparin subcu. Dr. Yeung=Pulmonary Critical Care and Dr. Garcia = Infectious Disease. Titrate FIO2 to sat of 92% ABX=azithromycin and ceftriaxone Guero Peng MD May 30, 2020 16:53
--- NOTE | 2020-05-30 17:44 | Surgery Progress Note ---
Surgery Progress Note Subjective Additional Comments ill appearing no acute events labs noted micro reviewed Objective Last 24 Hour Vital Signs Date Time Temp Pulse Resp B/P (MAP) Pulse Ox O2 Delivery O2 Flow Rate FiO2 05/30/20 16:00 98.1 89 20 130/70 (90) 98 05/30/20 12:00 97.8 87 18 132/74 (93) 98 05/30/20 09:00 Nasal Cannula 2.0 05/30/20 08:58 89 115/68 05/30/20 08:00 97.8 92 18 115/63 (80) 98 05/30/20 04:00 97.6 89 20 115/68 (84) 96 05/30/20 00:00 98.1 92 20 107/73 (84) 96 05/29/20 21:00 Nasal Cannula 2.0 05/29/20 20:00 97.8 94 20 111/71 (84) 95 I&O Intake and Output 05/29/20 05/30/20 18:59 06:59 Intake Total 500 ml 240 ml Output Total 1000 ml 1100 ml Balance -500 ml -860 ml Intake Oral 500 ml 240 ml Output Urine Total 1000 ml 1100 ml # Voids 4 3 Dressing: saturated Cardiovascular: RSR Respiratory: decreased breath sounds Abdomen: soft, non-tender, present bowel sounds Extremities: no tenderness, no cyanosis Laboratory Tests Test 05/30/20 04:00 White Blood Count 12.0 K/UL (4.8-10.8) H Red Blood Count 3.68 M/UL (4.70-6.10) L Hemoglobin 13.1 G/DL (14.2-18.0) L Hematocrit 39.4 % (42.0-52.0) L Mean Corpuscular Volume 107 FL (80-99) H Mean Corpuscular Hemoglobin 35.6 PG (27.0-31.0) H Mean Corpuscular Hemoglobin Concent 33.3 G/DL (32.0-36.0) Red Cell Distribution Width 12.8 % (11.6-14.8) Platelet Count 282 K/UL (150-450) Mean Platelet Volume 4.4 FL (6.5-10.1) L Neutrophils (%) (Auto) 77.0 % (45.0-75.0) H Lymphocytes (%) (Auto) 13.8 % (20.0-45.0) L Monocytes (%) (Auto) 7.0 % (1.0-10.0) Eosinophils (%) (Auto) 1.6 % (0.0-3.0) Basophils (%) (Auto) 0.6 % (0.0-2.0) Erythrocyte Sedimentation Rate 76 MM/HR (0-20) H Sodium Level 134 MMOL/L (136-145) L Potassium Level 4.3 MMOL/L (3.5-5.1) Chloride Level 99 MMOL/L (98-107) Carbon Dioxide Level 33 MMOL/L (21-32) H Anion Gap 2 mmol/L (5-15) L Blood Urea Nitrogen 21 mg/dL (7-18) H Creatinine 1.0 MG/DL (0.55-1.30) Estimat Glomerular Filtration Rate > 60 mL/min (>60) Glucose Level 72 MG/DL (74-106) L Calcium Level 8.6 MG/DL (8.5-10.1) Phosphorus Level 3.6 MG/DL (2.5-4.9) Magnesium Level 1.9 MG/DL (1.8-2.4) Total Bilirubin 0.4 MG/DL (0.2-1.0) Aspartate Amino Transf (AST/SGOT) 53 U/L (15-37) H Alanine Aminotransferase (ALT/SGPT) 117 U/L (12-78) H Alkaline Phosphatase 89 U/L (46-116) C-Reactive Protein, Quantitative 1.3 mg/dL (0.00-0.90) H Total Protein 7.4 G/DL (6.4-8.2) Albumin 2.5 G/DL (3.4-5.0) L Globulin 4.9 g/dL Albumin/Globulin Ratio 0.5 (1.0-2.7) L Plan Problems: (1) Abnormal LFTs Assessment & Plan: 84M abnormal lf'ts worsening ast/alt tending up covid + no bleeding no n/v cxr noted on abx meds reviewed US pending once negative trend labs lip nml esr elevated will follow with recs (2) CAD (coronary artery disease) (3) HTN (hypertension) (4) Hyponatremia (5) UTI (urinary tract infection) (6) Pneumonia (7) COVID-19 Assessment & Plan: ++ There are patchy bilateral diffuse peripheral ground glass alveolar infiltrates consistent with pneumonia. The infiltrates are typical of Covid 19. tx per ID and pulm (8) BPH (benign prostatic hyperplasia) (9) COPD (chronic obstructive pulmonary disease) Jad Whalen May 30, 2020 17:44
[2020-05-30] MEDS: Azithromycin 250 MG in D5W 275 ML IV SCH (18:10)
[2020-05-30 20:00] VITALS: BP 124/73
[2020-05-30] MEDS: cefTRIAXone 1 GM in D5W 55 ML IVPB SCH (20:17)
[2020-05-30] MEDS: Latanoprost 0.005% Opth 2.5ml Soln BOTH EYES SCH (20:17)
[2020-05-30] MEDS: Promethazine/Codeine 5ml UD ORAL PRN (20:17)
[2020-05-31] VITALS: BP 120/69
[2020-05-31 04:00] VITALS: BP 123/72
[2020-05-31 07:42] LABS: HEMATOCRIT 40.4 % (42.0-52.0); HEMOGLOBIN 12.7 G/DL (14.2-18.0); MEAN CORPUSCULAR VOLUME 112 FL (80-99); PLATELET COUNT 269 K/UL (150-450); RED CELL DISTRIBUTION WIDTH 11.7 % (11.6-14.8); WHITE BLOOD COUNT 10.6 K/UL (4.8-10.8)
[2020-05-31 07:54] LABS: ANION GAP 0 mmol/L (5-15); BLOOD UREA NITROGEN 21 mg/dL (7-18); CALCIUM 8.6 MG/DL (8.5-10.1); CARBON DIOXIDE 34 MMOL/L (21-32); CHLORIDE 99 MMOL/L (98-107); POTASSIUM 4.2 MMOL/L (3.5-5.1); SODIUM 133 MMOL/L (136-145)
[2020-05-31 08:00] VITALS: BP 139/82
[2020-05-31] MEDS: Dorzolamide 2% 10ml Btl BOTH EYES SCH ×2 (08:31→17:25)
[2020-05-31] MEDS: Heparin 5000 units/ml inj SUBQ SCH (08:32)
[2020-05-31] MEDS: Aspirin Baby 81mg ORAL SCH (08:32)
[2020-05-31] MEDS: Tamsulosin 0.4mg cap ORAL SCH (08:33)
[2020-05-31] MEDS: Sertraline 50mg tab ORAL SCH (08:33)
--- NOTE | 2020-05-31 08:53 | Infectious Diseases Prog Note ---
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 The infiltrates are typical of Covid 19. 05/29 CXR: Slight interval worsening aeration with increased streaky opacities at the left base which may potentially be related to subsegmental atelectasis. No significant interval change in patchy bilateral groundglass infiltrates. Elevated LFTs, AST/ALT 67 / 121, trend BUE US neg for DVT From SNF Plan: Cont dexamethasone #6/ Stop CTX/azithro empiric #5/5 05/31 SP CTX/az #5 empiric Not candidate for RDV at this time as satting well on only 2L NC This institution does not have access to convalescent plasma, and as pt so many days out from dx at time of admission, unlikely to benefit from it Trend LFTs Monitor CBC/CMP Monitor temp curve, hemodynamics Monitor resp status D/w RN Thank you for this consult. [facility] will continue to follow. Subjective Allergies: Coded Allergies: No Known Allergies (Unverified , 05/26/20) AF Satting well on 2L NC WBC improved to 10 NAD Reports no BM in 5 days, really wants to have BM Objective Last 24 Hour Vital Signs Date Time Temp Pulse Resp B/P (MAP) Pulse Ox O2 Delivery O2 Flow Rate FiO2 05/31/20 08:33 83 139/82 05/31/20 04:00 97.6 85 20 123/72 (89) 97 05/31/20 00:00 97.3 87 20 120/69 (86) 96 05/30/20 21:00 Nasal Cannula 2.0 05/30/20 20:00 97.6 84 20 124/73 (90) 96 05/30/20 16:00 98.1 89 20 130/70 (90) 98 05/30/20 12:00 97.8 87 18 132/74 (93) 98 05/30/20 09:00 Nasal Cannula 2.0 05/30/20 08:58 89 115/68 Height (Feet): 5 Height (Inches): 6.00 Weight (Pounds): 145 Gen: NAD HEENT: NCAT Pulm: BL chest rise Abd: Non-distended Ext: No c/c/e Skin: No visible rashes Neuro: Awake Laboratory Tests Test 05/31/20 06:50 White Blood Count 10.6 K/UL (4.8-10.8) Red Blood Count 3.60 M/UL (4.70-6.10) L Hemoglobin 12.7 G/DL (14.2-18.0) L Hematocrit 40.4 % (42.0-52.0) L Mean Corpuscular Volume 112 FL (80-99) H Mean Corpuscular Hemoglobin 35.3 PG (27.0-31.0) H Mean Corpuscular Hemoglobin Concent 31.5 G/DL (32.0-36.0) L Red Cell Distribution Width 11.7 % (11.6-14.8) Platelet Count 269 K/UL (150-450) Mean Platelet Volume 5.2 FL (6.5-10.1) L Neutrophils (%) (Auto) % (45.0-75.0) Lymphocytes (%) (Auto) % (20.0-45.0) Monocytes (%) (Auto) % (1.0-10.0) Eosinophils (%) (Auto) % (0.0-3.0) Basophils (%) (Auto) % (0.0-2.0) Neutrophils % (Manual) Pending Lymphocytes % (Manual) Pending Platelet Estimate Pending Platelet Morphology Pending Sodium Level 133 MMOL/L (136-145) L Potassium Level 4.2 MMOL/L (3.5-5.1) Chloride Level 99 MMOL/L (98-107) Carbon Dioxide Level 34 MMOL/L (21-32) H Anion Gap 0 mmol/L (5-15) L Blood Urea Nitrogen 21 mg/dL (7-18) H Creatinine 1.0 MG/DL (0.55-1.30) Estimat Glomerular Filtration Rate > 60 mL/min (>60) Glucose Level 86 MG/DL (74-106) Calcium Level 8.6 MG/DL (8.5-10.1) Current Medications Medications (Trade) Dose Ordered Sig/Lewis Route PRN Reason Start Time Stop Time Status Last Admin Dose Admin Acetaminophen (Tylenol) 650 mg Q4H PRN ORAL FEVER 05/26/20 15:53 06/25/20 15:52 Albuterol/ Ipratropium (Combivent Respimat) 1 puff Q4H PRN INH Shortness of Breath 05/27/20 21:30 06/26/20 21:29 05/27/20 21:18 Amlodipine Besylate (Norvasc) 5 mg DAILY ORAL 05/27/20 09:00 06/26/20 08:59 05/31/20 08:33 Aspirin (ASA) 81 mg DAILY ORAL 05/27/20 09:00 07/11/20 08:59 05/31/20 08:32 Azithromycin 250 mg/Dextrose 275 ml @ 275 mls/hr Q24HRS IV 05/26/20 18:00 05/31/20 17:59 05/30/20 18:10 Ceftriaxone Sodium 1 gm/ Dextrose 55 ml @ 110 mls/hr Q24H IVPB 05/26/20 21:00 06/02/20 20:59 05/30/20 20:17 Dexamethasone (Decadron) 6 mg DAILY ORAL 05/27/20 09:00 06/06/20 08:59 05/31/20 08:32 Dextrose (Dextrose 50%) 25 ml Q30M PRN IV Hypoglycemia 05/26/20 15:52 08/24/20 15:51 Dextrose (Dextrose 50%) 50 ml Q30M PRN IV Hypoglycemia 05/26/20 15:52 08/24/20 15:51 Dorzolamide HCl (Trusopt) 1 drop BID BOTH EYES 05/29/20 18:00 06/28/20 17:59 05/31/20 08:31 Heparin Sodium (Porcine) (Heparin 5000 units/ml) 5,000 units EVERY 12 HOURS SUBQ 05/26/20 21:00 07/10/20 20:59 05/31/20 08:32 Latanoprost (Xalatan) 1 drop BEDTIME BOTH EYES 05/29/20 21:00 06/28/20 20:59 05/30/20 20:17 Ondansetron HCl (Zofran) 4 mg Q6H PRN IVP Nausea & Vomiting 05/26/20 15:52 06/25/20 15:51 Polyethylene Glycol (Miralax) 17 gm DAILY PRN ORAL CONSTIPATION 05/26/20 16:00 06/25/20 15:59 Promethazine HCl/ Codeine (Phenergan with Codeine) 5 ml Q6H PRN ORAL cough 05/26/20 15:53 06/25/20 15:52 05/30/20 20:17 Quetiapine Fumarate (SEROqueL) 150 mg BEDTIME ORAL 05/28/20 21:00 07/11/20 21:29 05/30/20 20:17 Sertraline HCl (Zoloft) 150 mg DAILY ORAL 05/27/20 09:00 06/26/20 08:59 05/31/20 08:33 Tamsulosin HCl (Flomax) 0.4 mg DAILY ORAL 05/27/20 09:00 06/26/20 08:59 05/31/20 08:33 Temazepam (Restoril) 15 mg HSPRN PRN ORAL Insomnia 05/28/20 01:00 06/04/20 00:59 05/30/20 20:17 Nadine Lynn M.D. May 31, 2020 08:53
--- NOTE | 2020-05-31 11:47 | Pulmonology Progress Note ---
Subjective ROS Limited/Unobtainable: Yes Interval Events: doing better Constitutional: Reports: no symptoms HEENT: Repors: no symptoms Allergies: Coded Allergies: No Known Allergies (Unverified , 05/26/20) Objective Last 24 Hour Vital Signs Date Time Temp Pulse Resp B/P (MAP) Pulse Ox O2 Delivery O2 Flow Rate FiO2 05/31/20 09:00 Nasal Cannula 2.0 05/31/20 08:33 83 139/82 05/31/20 08:00 96.4 83 19 139/82 (101) 98 05/31/20 04:00 97.6 85 20 123/72 (89) 97 05/31/20 00:00 97.3 87 20 120/69 (86) 96 05/30/20 21:00 Nasal Cannula 2.0 05/30/20 20:00 97.6 84 20 124/73 (90) 96 05/30/20 16:00 98.1 89 20 130/70 (90) 98 05/30/20 12:00 97.8 87 18 132/74 (93) 98 Intake and Output 05/30/20 05/31/20 19:00 07:00 Intake Total 600 ml 450 ml Output Total 1000 ml Balance -400 ml 450 ml Intake Oral 600 ml 450 ml Output Urine Total 1000 ml # Voids 4 2 General Appearance: WD/WN HEENT: normocephalic, atraumatic Respiratory: chest wall non-tender, lungs clear Cardiovascular: normal peripheral pulses, regular rhythm Abdomen: normal bowel sounds, soft, non tender Genitourinary: normal external genitalia Extremities: no clubbing Skin: no rash 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 Lymphatic: no neck adenopathy Laboratory Tests 05/31/20 06:50: White Blood Count 10.6, Red Blood Count 3.60L, Hemoglobin 12.7L, Hematocrit 40.4L, Mean Corpuscular Volume 112H, Mean Corpuscular Hemoglobin 35.3H, Mean Corpuscular Hemoglobin Concent 31.5L, Red Cell Distribution Width 11.7, Platelet Count 269, Mean Platelet Volume 5.2L, Neutrophils (%) (Auto) , Lymphocytes (%) (Auto) , Monocytes (%) (Auto) , Eosinophils (%) (Auto) , Basophils (%) (Auto) , Differential Total Cells Counted 100, Neutrophils % (Manual) 65, Lymphocytes % (Manual) 21, Monocytes % (Manual) 10, Eosinophils % (Manual) 4H, Basophils % (Manual) 0, Band Neutrophils 0, Platelet Estimate Adequate, Platelet Morphology Normal, Hypochromasia 1+, Macrocytosis 1+, Stomatocytes Occasional, Sodium Level 133L, Potassium Level 4.2, Chloride Level 99, Carbon Dioxide Level 34H, Anion Gap 0L, Blood Urea Nitrogen 21H, Creatinine 1.0, Estimat Glomerular Filtration Rate > 60, Glucose Level 86, Calcium Level 8.6 Current Medications Medications (Trade) Dose Ordered Sig/Lewis Route PRN Reason Start Time Stop Time Status Last Admin Dose Admin Acetaminophen (Tylenol) 650 mg Q4H PRN ORAL FEVER 05/26/20 15:53 06/25/20 15:52 Albuterol/ Ipratropium (Combivent Respimat) 1 puff Q4H PRN INH Shortness of Breath 05/27/20 21:30 06/26/20 21:29 05/27/20 21:18 Amlodipine Besylate (Norvasc) 5 mg DAILY ORAL 05/27/20 09:00 06/26/20 08:59 05/31/20 08:33 Aspirin (ASA) 81 mg DAILY ORAL 05/27/20 09:00 07/11/20 08:59 05/31/20 08:32 Dexamethasone (Decadron) 6 mg DAILY ORAL 05/27/20 09:00 06/06/20 08:59 05/31/20 08:32 Dextrose (Dextrose 50%) 25 ml Q30M PRN IV Hypoglycemia 05/26/20 15:52 08/24/20 15:51 Dextrose (Dextrose 50%) 50 ml Q30M PRN IV Hypoglycemia 05/26/20 15:52 08/24/20 15:51 Dorzolamide HCl (Trusopt) 1 drop BID BOTH EYES 05/29/20 18:00 06/28/20 17:59 05/31/20 08:31 Heparin Sodium (Porcine) (Heparin 5000 units/ml) 5,000 units EVERY 12 HOURS SUBQ 05/26/20 21:00 07/10/20 20:59 05/31/20 08:32 Latanoprost (Xalatan) 1 drop BEDTIME BOTH EYES 05/29/20 21:00 06/28/20 20:59 05/30/20 20:17 Ondansetron HCl (Zofran) 4 mg Q6H PRN IVP Nausea & Vomiting 05/26/20 15:52 06/25/20 15:51 Polyethylene Glycol (Miralax) 17 gm DAILY PRN ORAL CONSTIPATION 05/26/20 16:00 06/25/20 15:59 05/31/20 11:06 Promethazine HCl/ Codeine (Phenergan with Codeine) 5 ml Q6H PRN ORAL cough 05/26/20 15:53 06/25/20 15:52 05/30/20 20:17 Quetiapine Fumarate (SEROqueL) 150 mg BEDTIME ORAL 05/28/20 21:00 07/11/20 21:29 05/30/20 20:17 Sertraline HCl (Zoloft) 150 mg DAILY ORAL 05/27/20 09:00 06/26/20 08:59 05/31/20 08:33 Tamsulosin HCl (Flomax) 0.4 mg DAILY ORAL 05/27/20 09:00 06/26/20 08:59 05/31/20 08:33 Temazepam (Restoril) 15 mg HSPRN PRN ORAL Insomnia 05/28/20 01:00 06/04/20 00:59 05/30/20 20:17 Assessment/Plan Problems: (1) COVID-19 (2) COPD (chronic obstructive pulmonary disease) (3) CAD (coronary artery disease) (4) HTN (hypertension) (5) BPH (benign prostatic hyperplasia) Assessment/Plan afebrile, off abx cxr 12:29: Slight interval worsening aeration with increased streaky opacities at the left base which may potentially be related to subsegmental atelectasis. Respiratory Isolation titrate fio2 to sat of 92% ABx and antiviral as per ID monitor BP resume [facility]p meds symptomatic treatment antitussives dvt prophylaxis Maria Eugenia Yeung MD May 31, 2020 11:47
[2020-05-31] MEDS ORDERED: DECADRON6 MG PO (11:48)
[2020-05-31 12:00] VITALS: BP 99/62
--- NOTE | 2020-05-31 14:14 | Surgery Progress Note ---
Surgery Progress Note Subjective Symptoms: improved, tolerating diet, passing flatus Objective Last 24 Hour Vital Signs Date Time Temp Pulse Resp B/P (MAP) Pulse Ox O2 Delivery O2 Flow Rate FiO2 05/31/20 12:00 96.1 81 20 99/62 (74) 99 05/31/20 09:00 Nasal Cannula 2.0 05/31/20 08:33 83 139/82 05/31/20 08:00 96.4 83 19 139/82 (101) 98 05/31/20 04:00 97.6 85 20 123/72 (89) 97 05/31/20 00:00 97.3 87 20 120/69 (86) 96 05/30/20 21:00 Nasal Cannula 2.0 05/30/20 20:00 97.6 84 20 124/73 (90) 96 05/30/20 16:00 98.1 89 20 130/70 (90) 98 I&O Intake and Output 05/30/20 05/31/20 19:00 07:00 Intake Total 600 ml 450 ml Output Total 1000 ml Balance -400 ml 450 ml Intake Oral 600 ml 450 ml Output Urine Total 1000 ml # Voids 4 2 Dressing: dry Wound: clean Cardiovascular: RSR Respiratory: clear, decreased breath sounds Abdomen: soft, flat, non-tender, present bowel sounds, non-distended Extremities: no tenderness, no cyanosis Laboratory Tests Test 05/31/20 06:50 White Blood Count 10.6 K/UL (4.8-10.8) Red Blood Count 3.60 M/UL (4.70-6.10) L Hemoglobin 12.7 G/DL (14.2-18.0) L Hematocrit 40.4 % (42.0-52.0) L Mean Corpuscular Volume 112 FL (80-99) H Mean Corpuscular Hemoglobin 35.3 PG (27.0-31.0) H Mean Corpuscular Hemoglobin Concent 31.5 G/DL (32.0-36.0) L Red Cell Distribution Width 11.7 % (11.6-14.8) Platelet Count 269 K/UL (150-450) Mean Platelet Volume 5.2 FL (6.5-10.1) L Neutrophils (%) (Auto) % (45.0-75.0) Lymphocytes (%) (Auto) % (20.0-45.0) Monocytes (%) (Auto) % (1.0-10.0) Eosinophils (%) (Auto) % (0.0-3.0) Basophils (%) (Auto) % (0.0-2.0) Differential Total Cells Counted 100 Neutrophils % (Manual) 65 % (45-75) Lymphocytes % (Manual) 21 % (20-45) Monocytes % (Manual) 10 % (1-10) Eosinophils % (Manual) 4 % (0-3) H Basophils % (Manual) 0 % (0-2) Band Neutrophils 0 % (0-8) Platelet Estimate Adequate Platelet Morphology Normal Hypochromasia 1+ Macrocytosis 1+ Stomatocytes Occasional Sodium Level 133 MMOL/L (136-145) L Potassium Level 4.2 MMOL/L (3.5-5.1) Chloride Level 99 MMOL/L (98-107) Carbon Dioxide Level 34 MMOL/L (21-32) H Anion Gap 0 mmol/L (5-15) L Blood Urea Nitrogen 21 mg/dL (7-18) H Creatinine 1.0 MG/DL (0.55-1.30) Estimat Glomerular Filtration Rate > 60 mL/min (>60) Glucose Level 86 MG/DL (74-106) Calcium Level 8.6 MG/DL (8.5-10.1) Plan Problems: (1) Abnormal LFTs Assessment & Plan: 84M abnormal lf'ts worsening ast/alt tending up covid + no bleeding no n/v cxr noted on abx meds reviewed US pending once negative trend labs lip nml esr elevated will follow with recs (2) CAD (coronary artery disease) (3) HTN (hypertension) (4) Hyponatremia (5) UTI (urinary tract infection) (6) Pneumonia (7) COVID-19 Assessment & Plan: ++ There are patchy bilateral diffuse peripheral ground glass alveolar infiltrates consistent with pneumonia. The infiltrates are typical of Covid 19. tx per ID and pulm (8) BPH (benign prostatic hyperplasia) (9) COPD (chronic obstructive pulmonary disease) Jad Whalen May 31, 2020 14:14
[2020-05-31 16:00] VITALS: BP 125/75
--- NOTE | 2020-05-31 19:37 | Internal Med Progress Note ---
Subjective Date of Service: May 31, 2020 Physician Name Guero Peng Attending Physician Josiah Rosales MD Current Medications Medications (Trade) Dose Ordered Sig/Lewis Route PRN Reason Start Time Stop Time Status Last Admin Dose Admin Acetaminophen (Tylenol) 650 mg Q4H PRN ORAL FEVER 05/26/20 15:53 06/25/20 15:52 Albuterol/ Ipratropium (Combivent Respimat) 1 puff Q4H PRN INH Shortness of Breath 05/27/20 21:30 06/26/20 21:29 05/27/20 21:18 Amlodipine Besylate (Norvasc) 5 mg DAILY ORAL 05/27/20 09:00 06/26/20 08:59 05/31/20 08:33 Aspirin (ASA) 81 mg DAILY ORAL 05/27/20 09:00 07/11/20 08:59 05/31/20 08:32 Dexamethasone (Decadron) 6 mg DAILY ORAL 05/27/20 09:00 06/06/20 08:59 05/31/20 08:32 Dextrose (Dextrose 50%) 25 ml Q30M PRN IV Hypoglycemia 05/26/20 15:52 08/24/20 15:51 Dextrose (Dextrose 50%) 50 ml Q30M PRN IV Hypoglycemia 05/26/20 15:52 08/24/20 15:51 Dorzolamide HCl (Trusopt) 1 drop BID BOTH EYES 05/29/20 18:00 06/28/20 17:59 05/31/20 17:25 Heparin Sodium (Porcine) (Heparin 5000 units/ml) 5,000 units EVERY 12 HOURS SUBQ 05/26/20 21:00 07/10/20 20:59 05/31/20 08:32 Latanoprost (Xalatan) 1 drop BEDTIME BOTH EYES 05/29/20 21:00 06/28/20 20:59 05/30/20 20:17 Ondansetron HCl (Zofran) 4 mg Q6H PRN IVP Nausea & Vomiting 05/26/20 15:52 06/25/20 15:51 Polyethylene Glycol (Miralax) 17 gm DAILY PRN ORAL CONSTIPATION 05/26/20 16:00 06/25/20 15:59 05/31/20 11:06 Promethazine HCl/ Codeine (Phenergan with Codeine) 5 ml Q6H PRN ORAL cough 05/26/20 15:53 06/25/20 15:52 05/30/20 20:17 Quetiapine Fumarate (SEROqueL) 150 mg BEDTIME ORAL 05/28/20 21:00 07/11/20 21:29 05/30/20 20:17 Sertraline HCl (Zoloft) 150 mg DAILY ORAL 05/27/20 09:00 06/26/20 08:59 05/31/20 08:33 Tamsulosin HCl (Flomax) 0.4 mg DAILY ORAL 05/27/20 09:00 06/26/20 08:59 05/31/20 08:33 Temazepam (Restoril) 15 mg HSPRN PRN ORAL Insomnia 05/28/20 01:00 06/04/20 00:59 05/30/20 20:17 Allergies: Coded Allergies: No Known Allergies (Unverified , 05/26/20) ROS Limited/Unobtainable: Yes Subjective 84 YO M admitted with shortness of breath and COVID 19 pos. Now pneumonia. Cover for Int Med-DR Rosales Objective Last Vital Signs Date Time Temp Pulse Resp B/P (MAP) Pulse Ox O2 Delivery O2 Flow Rate FiO2 05/31/20 16:00 98.1 95 20 125/75 (92) 97 05/31/20 09:00 Nasal Cannula 2.0 05/28/20 20:09 28 Laboratory Tests Test 05/31/20 06:50 White Blood Count 10.6 K/UL (4.8-10.8) Red Blood Count 3.60 M/UL (4.70-6.10) L Hemoglobin 12.7 G/DL (14.2-18.0) L Hematocrit 40.4 % (42.0-52.0) L Mean Corpuscular Volume 112 FL (80-99) H Mean Corpuscular Hemoglobin 35.3 PG (27.0-31.0) H Mean Corpuscular Hemoglobin Concent 31.5 G/DL (32.0-36.0) L Red Cell Distribution Width 11.7 % (11.6-14.8) Platelet Count 269 K/UL (150-450) Mean Platelet Volume 5.2 FL (6.5-10.1) L Neutrophils (%) (Auto) % (45.0-75.0) Lymphocytes (%) (Auto) % (20.0-45.0) Monocytes (%) (Auto) % (1.0-10.0) Eosinophils (%) (Auto) % (0.0-3.0) Basophils (%) (Auto) % (0.0-2.0) Differential Total Cells Counted 100 Neutrophils % (Manual) 65 % (45-75) Lymphocytes % (Manual) 21 % (20-45) Monocytes % (Manual) 10 % (1-10) Eosinophils % (Manual) 4 % (0-3) H Basophils % (Manual) 0 % (0-2) Band Neutrophils 0 % (0-8) Platelet Estimate Adequate Platelet Morphology Normal Hypochromasia 1+ Macrocytosis 1+ Stomatocytes Occasional Sodium Level 133 MMOL/L (136-145) L Potassium Level 4.2 MMOL/L (3.5-5.1) Chloride Level 99 MMOL/L (98-107) Carbon Dioxide Level 34 MMOL/L (21-32) H Anion Gap 0 mmol/L (5-15) L Blood Urea Nitrogen 21 mg/dL (7-18) H Creatinine 1.0 MG/DL (0.55-1.30) Estimat Glomerular Filtration Rate > 60 mL/min (>60) Glucose Level 86 MG/DL (74-106) Calcium Level 8.6 MG/DL (8.5-10.1) Intake and Output 05/30/20 05/31/20 19:00 07:00 Intake Total 600 ml 450 ml Output Total 1000 ml Balance -400 ml 450 ml Intake Oral 600 ml 450 ml Output Urine Total 1000 ml # Voids 4 2 Objective PHYSICAL EXAMINATION: GENERAL: Patient awake, responsive, in no acute distress. HEAD AND NECK: Pupils are equal and reactive to light. Extraocular movements are intact. Neck was supple. No JVD. LUNGS: Good air entry. Positive wheezes. No rales. Decreased air in bases. HEART: S1, S2. Distant heart sounds. No murmur or gallops. ABDOMEN: Soft, nondistended, nontender. Positive bowel sounds. EXTREMITIES: No cyanosis, clubbing, or edema. NEUROLOGIC: Cranial nerves II through XII grossly intact. Patient moving all the extremities spontaneously. RECTAL: Refused and deferred. GENITOURINARY: Refused and deferred. PSYCHIATRIC: Mood and affect is intact. Assessment/Plan Assessment/Plan Assessment/Plan Assessment/Plan ASSESSMENT: 1. COVID-19 pneumonia. 2. Acute hypoxemic respiratory failure. 3. Hyponatremia. 4. 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 5. Dyslipidemia. 6. Depression. 7. BPH. PLAN: Medical unit. Monitor laboratory and cultures. on Decadron Consider Remdesivir if the patient's status is not improving. Duplex of lower extremity negative for acute DVT. Code status is Full Code. DVT prophylaxis: Heparin subcu. Dr. Yeung=Pulmonary Critical Care and Dr. Garcia = Infectious Disease. Titrate FIO2 to sat of 92% ABX=azithromycin and ceftriaxone Guero Peng MD May 31, 2020 19:37
--- NOTE | 2020-06-02 14:28 | Discharge Summary ---
Discharge Summary Discharge Summary _ DATE OF ADMISSION: 05/26/2020 DATE OF DISCHARGE: 05/31/2020 DISCHARGED BY: Dr Rosales REASON FOR ADMISSION: [] 84 years old male with past medical history significant for coronary artery disease, history of open heart surgery, dyslipidemia, BPH, depression, was presented from the long-term facility after he had recent late diagnosed for COVID-19 infection at and had pneumonia viral pneumonia. Patient was brought from the long-term facility at [facility] area after complaining of worsening shortness of breath. He denied fever and chills. He denied chest pain. No loss of consciousness. No abdominal pain, nausea vomiting or diarrhea. Shortly after initial evaluation emergency department patient was admitted with Covid pneumonia and acute hypoxemic respiratory failure CONSULTANTS: pulmonary Dr Yeung ID specialist Dr. Lynn surgery Dr. Justin HOSPITAL COURSE: Patient initially admitted to monitored floor to isolation room. Ssupplemental oxygen provided and titrated to keep pulse oximetry above 92%. Pulmonary toilet provided. Venous patient received IV steroids for. Patient re ceived empiric antibiotics. Patient was follow-up with inflammatory markers. Blood cultures were negative. Flu swab was negative. Initial leukocytosis resolved. CRP trended down to 1.3. Venous duplex bilateral lower extremity revealed no evidence of acute DVT. Patient was follow-up with a chest x-ray. Supplemental oxygen provided and titrated to keep pulse oximetry above 92%. DVT prophylaxis provided. SNF medication continued. Blood pressure was closely monitor remained stable antitussive provided as needed Patient noted to have bilateral LFT abnormal LFT patient denied nausea and vomiting leukocytosis resolved LFT trending down Surgeon follow normal LFT patient clinically stabilized and was ready for transfer back to long-term [facility] recommended continuous isolation for total of 10 days as per ID specialist recommendation FINAL DIAGNOSES: COVID-19 pneumonia Acute hypoxemic respiratory failure Coronary artery disease Hypertension Dyslipidemia Abnormal LFT Hyponatremia Depression BPH DISCHARGE MEDICATIONS: See Medication Reconciliation list. DISCHARGE INSTRUCTIONS: Patient was discharged to the long-term facility. Follow up with medical doctor at the facility. I have been assigned to dictate discharge summary for this account. I was not involved in the patient's management. Wandy Morley NP Jun 02, 2020 14:28
== END 2020-05-31 19:10 | disposition short-term general hospital (02) | DRG 177 ==
LOC: EDBD 09:17 → EMR 09:41 → 4E 09:48 → EDBEDREQTM 22:04 → EDBEDREQ 22:04 → EDBEDREQSVC 22:04 → EDBEDREQ 05-27 15:22
DX: U07.1 COVID-19 (principal); J12.89 Other viral pneumonia; J96.01 Acute respiratory failure with hypoxia; E87.1 Hypo-osmolality and hyponatremia; N40.0 Benign prostatic hyperplasia without lower urinary tract symptoms; I25.10 Atherosclerotic heart disease of native coronary artery without angina pectoris; E78.5 Hyperlipidemia, unspecified; F32.9 Major depressive disorder, single episode, unspecified; R94.5 Abnormal results of liver function studies; I10 Essential (primary) hypertension
CPT/HCPCS: 36415; 71045; 80048; 80053; 81003; 82150; 82728; 82803; 83605; 83615; 83690; 83735; 83880; 84100; 84484; 85007; 85025; 85379; 85610; 85651; 85730; 86140; 86710; 87040; 87081; 93005; 93970; 94640; 96365; 96367; 96375; 99285; J7620